=== PATIENT | female | born 1975 | race Caucasian/White ===

== ENCOUNTER 2016-07-21 19:32 | Emergency (ER) | payer OTHER ==
[~2016-07-21] VITALS: Ht 165.1 cm; Wt 122.5 kg
[~2016-07-21 19:32] MED LIST: ADDERALL 5 MG TA5 M1 PO; AMITRIPTYLINE H10 M1 PO; ANASPAZ0.125 MG PO; ANASPAZ0.125 MG SUBLING; ATIVAN1 MG; ATIVAN1 MG PO; AZITHROMYCIN 2250 MG PO; BACTRIM DS TAB1 EACH PO; BENTYL 10 MG CA10 M1 PO; CARAFATE 1 GM TA1 G1 PO; CARAFATE 11 GM/10 M1 PO; CIPROFLOXACIN500 M1 PO; CLONAZEPAM 1 MG1 M1 PO; CLONAZEPAM0.125 MG PO; COUMADIN 1MG TAB1 M1 PO; CREON 10 CAPSUL1 CA1 PO; FENTANYL PA12 MCG/H1; FENTANYL PA25 MCG/HR; HYDROCODONE-AP1 EAC6 PO; KEFLEX500 MG PO; KLONOPIN1 MG PO; LAMICTAL XR50 MG PO; LEXAPRO 10 MG T10 M2 PO; LEXAPRO 10 MG T10 MG; LEXAPRO 10 MG T10 MG PO; LITHIUM CARBON150 MG PO; LORTAB 5 MG/5001 TA1 PO; LUPRON DEPOT45 MG IM; MACROBID 100 M100 M1; MACROBID 100 M100 M1 PO; MARINOL 2.5 MG2.5 M1 PO; MARINOL10 MG PO; MARINOL2.5 MG; MIRALAX255 GM PO; NOHOMEMEDICATIONS; NORCO 5-325 TA1 EACH PO; OXYCODON-ACETA1 EAC1 PO; OXYCODONE HCL 55 MG; OXYCODONE HCL PO; OXYCODONE-ACET1 EAC2 PO; OXYCONTIN CR 1010 M1 PO; OXYCONTIN CR 2020 M1 PO; OXYCONTIN10 M1 PO; OXYCONTIN20 MG PO; PENICILLIN V P500 MG PO; PERCOCET 10-321 EACH; PERCOCET 5-3251 EACH PO; PERCOCET 7.5-31 EACH PO; PHENERGAN 25 MG25 M1 PO; PHENERGAN 25 MG25 MG PO; PHENERGAN25 M2 RC; PHENERGAN25 MG; PHENERGAN50 MG RC; PRILOSEC 20 MG20 MG PO; PROTONIX40 M2 PO; PYRIDIUM200 MG PO; REGLAN 10 MG TA10 M1 PO; RESTORIL15 MG PO; RESTORIL30 MG; ROBAXIN 750 MG750 M1 PO; SEROQUEL 25 MG25 M1 PO; SEROQUEL XR 30300 MG PO; TAMSULOSIN HCL0.4 M1 PO; TRANSDERM-SCO1 PATC1 TOP; VALIUM5 MG PO; VANCOMYCIN250 MG/2.5 PO; WELLBUTRIN XL150 M1; WELLBUTRIN XL150 M1 PO; XANAX1 MG PO; XARELTO10 M1; ZANAFLEX4 MG PO; ZOFRAN 4 MG ORAL4 MG PO; ZOFRAN ODT4 M1 PO; ZOFRAN ODT4 MG PO; ZOFRAN4 MG PO; ZPAK PO
[2016-08-26] MEDS ORDERED: COUMADIN 3 MG TA3 M1 PO (12:37)
== END 2016-07-21 22:27 | disposition home or self-care (01) ==
LOC: ER 19:32
DX: R51 Headache (principal); E66.9 Obesity, unspecified; Z86.711 Personal history of pulmonary embolism; Z86.718 Personal history of other venous thrombosis and embolism; Z90.49 Acquired absence of other specified parts of digestive tract; Z87.442 Personal history of urinary calculi; Z68.41 Body mass index [BMI] 40.0-44.9, adult; Z88.1 Allergy status to other antibiotic agents; Z88.8 Allergy status to other drugs, medicaments and biological substances; Z88.5 Allergy status to narcotic agent; Z88.6 Allergy status to analgesic agent

== ENCOUNTER 2016-07-22 13:17 | Emergency (ER) | payer OTHER ==
[~2016-07-22] VITALS: Ht 165.1 cm; Wt 122.5 kg
[2016-08-26] MEDS ORDERED: COUMADIN 3 MG TA3 M1 PO (12:37)
== END 2016-07-22 15:47 | disposition home or self-care (01) ==
LOC: ER 13:17
DX: F11.20 Opioid dependence, uncomplicated (principal); G89.29 Other chronic pain; R51 Headache; Z88.1 Allergy status to other antibiotic agents; Z88.5 Allergy status to narcotic agent; Z88.8 Allergy status to other drugs, medicaments and biological substances; Z90.49 Acquired absence of other specified parts of digestive tract; Z98.890 Other specified postprocedural states

== ENCOUNTER 2017-05-18 18:52 | Inpatient (IN) | payer OTHER ==
[~2017-05-18] VITALS: Ht 165.1 cm; Wt 135.2 kg
--- NOTE | ~2017-05-18 | EKG ---
[place] [address] [place] [address] ELECTROCARDIOGRAM REPORT Name: VISHAL STOCKTONIN GUICHO [id number] Admission: 05/18/17 Attend Phys: Discharge: Date of : 79 Report #: [id number] THIS REPORT FOR: //name// [facility] ED Test Date: 2017-05-18 Test Time: 19:21:30 Pat Name: MT STOCKTON Department: Room: Gender: F Veneer Repairer Machine: Josias RHODES : 1975 Requested By: Swati Scanlon Order Number: [id number] MD: Pietro Patton Measurements Intervals [place] Rate: 103 P: -36 DC: 156 QRS: -8 QRSD: 81 T: 175 QT: 336 QTc: 440 Interpretive Statements Sinus tachycardia Nonspecific repol abnormality, diffuse leads Compared to ECG 05/09/2017 00:38:10 Early repolarization now present Sinus rhythm no longer present Electronically Signed On 05-18-2017 21:07:44 FIELD MECHANIC/SITE LEAD by Pietro Patton [email or web address] <ELECTRONICALLY SIGNED> By: Pietro Patton MD 05/18/172106 20 20 Pietro Patton MD /RONALDO
[~2017-05-18 18:52] MED LIST changes: +ANTIVERT25 MG PO; +AUGMENTIN 875875 MG PO; +COUMADIN 3 MG TA3 M1 PO; +COUMADIN 5 MG TA5 M1 PO; +CYCLOBENZAPRINE5 MG PO; +EFFEXOR XR75 MG; +ENOXAPARIN100 MG/11 SUBQ; +ENOXAPARIN30 MG/0.1 SUBQ; +HYDROCODON-ACE1 EAC7 PO; +TOPAMAX 25 MG T25 M1 PO
[2017-05-18 18:55] VITALS: BP 156/106
[2017-05-18 19:57] LABS: ABSOLUTE NEUTROPHILS 7.3 thou/uL (1.4-8.2); BASOPHILS 0.4 % (0.0-2.0); HEMATOCRIT 42.5 % (37.0-47.0); HEMOGLOBIN 13.8 gm/dL (12.0-15.0); LYMPHOCYTES 17.5 % (24.0-44.0); MCHC 32.5 g/dL (28.0-37.0); MONOCYTES 6.1 % (1.0-8.0); PLATELET COUNT 335 thou/uL (150-400); RBC 4.94 mil/uL (4.20-5.00); RDW 15.1 % (10.5-14.5); WBC 9.8 thou/uL (4.0-11.0)
[2017-05-18 20:00] LABS: MANUAL DIFF NO
[2017-05-18 20:12] LABS: INR 1.3; PROTIME 13.1 Seconds (9.3-11.4)
[2017-05-18 20:35] LABS: ANION GAP 8 mmol/L (7-16); BUN 14 mg/dL (7-18); CALCIUM 9.1 mg/dL (8.5-10.1); CHLORIDE 106 mmol/L (98-107); CO2 24 mmol/L (21-32); CREATININE 0.9 mg/dL (0.6-1.0); GLUCOSE 168 mg/dL (74-106); POTASSIUM 3.8 mmol/L (3.5-5.1); SODIUM 138 mmol/L (136-145)
[2017-05-18 20:44] LABS: ALBUMIN 3.1 g/dL (3.4-5.0); ALKALINE PHOSPHATASE 144 U/L (46-116); DIRECT BILIRUBIN < 0.1 mg/dL (<0.1-0.3); SGOT 14 U/L (15-37); SGPT 31 U/L (30-65); TOTAL BILIRUBIN 0.3 mg/dL (<0.1-1.0); TOTAL PROTEIN 7.5 g/dL (6.4-8.2); TROPONIN-I < 0.04 ng/mL (<0.06)
[2017-05-18 22:32] VITALS: BP 114/72
[2017-05-18 22:50] VITALS: BP 140/70; BP 140/71
[2017-05-19 06:45] LABS: INR 1.4
[2017-05-19 08:18] VITALS: BP 135/88
[2017-05-19 11:28] VITALS: BP 131/89
[2017-05-19 14:56] LABS: INR 1.6; PROTIME 16.7 Seconds (9.3-11.4)
[2017-05-19 15:15] VITALS: BP 118/71
[2017-05-19 20:48] VITALS: BP 105/64
[2017-05-20 04:45] VITALS: BP 123/70
[2017-05-20 12:41] VITALS: BP 132/91
[2017-05-20 17:03] VITALS: BP 140/74
[2017-05-20 19:24] VITALS: BP 132/79
[2017-05-21 03:46] VITALS: BP 120/84
[2017-05-21 06:19] LABS: HEMATOCRIT 40.1 % (37.0-47.0); HEMOGLOBIN 12.9 gm/dL (12.0-15.0); MCH 27.7 pg (26.0-34.0); MCHC 32.3 g/dL (28.0-37.0); MCV 85.8 fL (80.0-100.0); RBC 4.67 mil/uL (4.20-5.00); WBC 8.2 thou/uL (4.0-11.0)
[2017-05-21 06:32] LABS: INR 2.5; PROTIME 24.4 Seconds (9.3-11.4)
[2017-05-21 07:51] VITALS: BP 124/86
[2017-05-21] MEDS ORDERED: NEURONTIN 300300 M1 PO (10:31)
[2017-05-21] MEDS ORDERED: TOPAMAX 25 MG T25 M1 PO (10:31)
[2017-05-21] MEDS ORDERED: LIPITOR10 MG PO (10:31)
[2017-05-21] MEDS ORDERED: PEPCID20 MG PO (10:32)
[2017-05-21 11:21] VITALS: BP 118/75
[2017-05-21 16:38] VITALS: BP 118/75
== END 2017-05-21 18:24 | disposition home or self-care (01) | DRG 57 ==
LOC: ER 18:52 → EROBS 22:05 → 3W 22:05 → ENTRNSPT 05-21 18:12 → 3W 05-21 18:24
PROVIDERS: Emergency Medicine; Hospitalist; Nurse Practitioner
DX: G81.90 Hemiplegia, unspecified affecting unspecified side (principal); Z68.42 Body mass index [BMI] 45.0-49.9, adult; D68.59 Other primary thrombophilia; G43.909 Migraine, unspecified, not intractable, without status migrainosus; E66.01 Morbid (severe) obesity due to excess calories; F32.9 Major depressive disorder, single episode, unspecified; I10 Essential (primary) hypertension; Z86.711 Personal history of pulmonary embolism; Z86.718 Personal history of other venous thrombosis and embolism; Z87.442 Personal history of urinary calculi; Z87.01 Personal history of pneumonia (recurrent); Z86.73 Personal history of transient ischemic attack (TIA), and cerebral infarction without residual deficits; Z79.899 Other long term (current) drug therapy; Z79.01 Long term (current) use of anticoagulants; Z88.8 Allergy status to other drugs, medicaments and biological substances; Z88.6 Allergy status to analgesic agent; Z91.048 Other nonmedicinal substance allergy status; Z90.49 Acquired absence of other specified parts of digestive tract; Z82.49 Family history of ischemic heart disease and other diseases of the circulatory system; Z71.3 Dietary counseling and surveillance
CPT/HCPCS: 10779

== ENCOUNTER 2017-07-12 07:53 | Emergency (ER) | payer BC ==
[~2017-07-12] VITALS: Ht 165.1 cm; Wt 122.5 kg
--- NOTE | ~2017-07-12 | EKG ---
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 Operator: [facility] : 1975 Requested By: Swati Scanlon Order Number: [id number] MD: Pietro Patton Measurements Intervals [place] Rate: 62 P: -10 MT: 163 QRS: -12 QRSD: 80 T: 69 QT: 476 QTc: 484 Interpretive Statements Sinus rhythm Inferior infarct, old Compared to ECG 05/18/2017 19:21:30 Myocardial infarct finding now present Sinus tachycardia no longer present Early repolarization no longer present Electronically Signed On 07-12-2017 9:08:53 CITIZEN PARTICIPATION SPECIALIST by Pietro Patton [email or web address] <ELECTRONICALLY SIGNED> By: Pietro Patton MD 07/12/1708 4 4 Pietro Patton MD /RONALDO
[~2017-07-12 07:53] MED LIST changes: +LIPITOR10 MG PO; +NEURONTIN 300300 M1 PO; +PEPCID20 MG PO
[2017-07-12] MEDS ORDERED: XARELTO20 MG PO (08:42)
[2017-07-12] MEDS ORDERED: NEURONTIN600 MG PO (08:43)
[2017-07-12 11:15] LABS: ABSOLUTE NEUTROPHILS 4.5 thou/uL (1.4-8.2); BASOPHILS 0.5 % (0.0-2.0); EOSINOPHILS 2.7 % (0.0-3.0); HEMATOCRIT 38.2 % (37.0-47.0); HEMOGLOBIN 12.8 gm/dL (12.0-15.0); LYMPHOCYTES 29.5 % (24.0-44.0); MCH 28.8 pg (26.0-34.0); MCHC 33.5 g/dL (28.0-37.0); MONOCYTES 6.8 % (1.0-8.0); PLATELET COUNT 335 thou/uL (150-400); POLYS 60.5 % (36.0-66.0); RBC 4.44 mil/uL (4.20-5.00); RDW 13.7 % (10.5-14.5); WBC 7.4 thou/uL (4.0-11.0)
[2017-07-12 11:23] LABS: CALCIUM 8.6 mg/dL (8.5-10.1); CREATININE 1.1 mg/dL (0.6-1.0); POTASSIUM 4.2 mmol/L (3.5-5.1)
[2017-07-12 11:32] LABS: APTT 26.4 Seconds (24.5-32.8); PROTIME 10.5 Seconds (9.3-11.4); TROPONIN-I 0.04 ng/mL (<0.06)
[2017-07-12 12:19] VITALS: BP 115/57
[2017-11-07] MEDS ORDERED: BAYER CHEWABLE81 MG PO (09:17)
[2017-11-07] MEDS ORDERED: LOPRESSOR50 PO (10:38)
== END 2017-07-12 12:21 | disposition home or self-care (01) ==
LOC: ER 07:53
PROVIDERS: Emergency Medicine
DX: I95.1 Orthostatic hypotension (principal); E66.9 Obesity, unspecified; I82.409 Acute embolism and thrombosis of unspecified deep veins of unspecified lower extremity; Z90.49 Acquired absence of other specified parts of digestive tract; Z87.442 Personal history of urinary calculi; Z88.1 Allergy status to other antibiotic agents; Z88.8 Allergy status to other drugs, medicaments and biological substances; Z88.6 Allergy status to analgesic agent

== ENCOUNTER 2017-07-26 11:12 | Inpatient (IN) | payer BC ==
[~2017-07-26] VITALS: Ht 165.1 cm; Wt 139.6 kg
--- NOTE | ~2017-07-26 | EEG ---
[facility] [place] [address] ELECTROENCEPHALOGRAM Name: MT STOCKTON Room #: 349-I [facility] IN M.R.#: [id number] Admission: 07/26/17 Attend Phys: Neyda Lainez MD Discharge: 07/28/17 Date of : 79 Report #: [id number] THIS REPORT FOR: //name// CC: HEIDY Lewis DATE OF SERVICE: 07/26/2017 This patient had an episode of speech difficulty and has previous strokes. EEG was done by placing the electrodes by standard 10/20 system of electrode placement. Both referential and sequential montages were used for recording. Background activity in this patient's EEG is about 10 Hz and 30 microvolt. It is a symmetrical activity. The amplitude is somewhat higher on the right side, but that cannot be a normal variation. Photic stimulation was unremarkable. The patient went to sleep that was associated with bilaterally symmetrical sleep spindle and vertex sharp waves. Throughout the record, no active epileptiform activity was noticed, but occasional sharper activity may be present in the left temporal area, which may be related to sleep, but difficult to tell. IMPRESSION: This patient's EEG does not demonstrate any clear-cut epileptiform activity. Question of sharper activity is present in the left temporal area, which is difficult to tell, but looks like sleep-related activity. Thank you very much for this referral. <ELECTRONICALLY SIGNED> By: Can Lewis MD 07/29/17 0732 06 MD donna Flores
--- NOTE | ~2017-07-26 | HC ---
[facility] [place] [address] CONSULTATION Name: MT STOCKTON Room #: 349-I [facility] IN ..#: [id number] Admission: 07/26/17 Attend Phys: Neyda Lainez MD Discharge: 07/28/17 Date of : 79 Report #: [id number] THIS REPORT FOR: //name// CC: HEIDY Lewis DATE OF SERVICE: 07/26/2017 HISTORY OF PRESENT ILLNESS: This is a 41-year-old female patient who is unable to provide any reliable history. The patient basically stayed asleep. She wakes up, she talks to me and then she goes back to sleep. provided history and he indicates that the patient is having some trouble for the last two weeks, but last night, she started having speech difficulty. According to him, she has not slept since Thursday and she was stressed out. These symptoms onset was at least last week, but may be longer than that. After coming to the hospital, she is becoming better. REVIEW OF SYSTEMS: Very extensive in this patient. This patient has seen Dr. Adler in the past. She apparently had a stroke in the past. 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 She is on anticoagulation. Review of systems indicate that she had a pretty significant workup. She had a carotid Doppler done, which was unremarkable. She had an MRI of the brain done, which showed old stroke, but no new strokes; that was done in April of last year. She had an MRA of the [place], which did not show marked abnormality. She had MRA of the venous sinuses, which was unremarkable. She had a pretty extensive history in the past and as mentioned above, had seen multiple physicians and she is on anticoagulation. Presently, she will not talk and she is sleepy, but she wakes up. When she wakes up, she does follow commands. She has some history of nausea, vomiting. She has a history of fracture of the neck, as I understand. She has a history of kidney stone. At one time, she had a Port-A-Cath. She also had some ERCP and deep vein thrombosis. The 14-point review of systems is pretty extensive in this patient and this was the relevant one. PAST MEDICAL HISTORY: Positive for multiple things and she has a history of documented strokes in the past. FAMILY HISTORY: Negative for early age stroke. SOCIAL HISTORY: She is and she was here with her and I interviewed him and he provided a lot of history. PHYSICAL EXAMINATION: NEUROLOGIC: Examination indicates she is alert. She is responsive. When I asked her whether she is better, she indicates she is. She is able to talk. [facility] [address] [place] [address] CONSULTATION Name: MT STOCKTON Room #: 349-I [facility] IN M.R.#: [id number] Admission: 07/26/17 Attend Phys: Neyda Lainez MD Discharge: 07/28/17 Date of : 79 Report #: [id number] She is sleepy because she said she has not slept much, so examination is limited. She moves her eyes in multiple directions, without any problem. She moves both sides. She does not have any meningeal sign. Rest of the examination is quite difficult in this patient. HEART: Examination does not appear to be showing atrial fibrillation. No respiratory difficulty was noticed. VITAL SIGNS: Indicate a blood pressure 156/82, respirations 18 and pulse is 82. GENERAL: She is otherwise a well-developed individual. IMPRESSION AND PLAN: It is a pretty complicated case. It is not clear that this patient had a stroke, and even if she did, it was last night and she is fully anticoagulated. A recent workup was mostly unremarkable. She is admitted for further workup and I think, the best is to get an MRI done in this patient first to see if there is any new lesion. We will see what the MRI shows and decide about further management after that is done. I will also get an EEG done and we will see how much workup needs to be repeated. I discussed with the patient and the and I discussed with them that she is outside the window for any intervention even if she had a stroke and more importantly, she is also on anticoagulation. Therefore, we will do this workup and go from there. She is agreeable with this plan. Thank you very much for this referral. <ELECTRONICALLY SIGNED> By: Can Lewis MD 07/29/17 0731 49 99 Can Lewis MD /nt
--- NOTE | ~2017-07-26 | 2DMMODE ---
[facility] [address] [address] 2 D/M-MODE ECHOCARDIOGRAM Name: MAHINMT LINDO Room #: 349-I ADM IN ..#: [id number] Admission: 07/26/17 Attend Phys: Neyda Lainez, Discharge: Date of : 79 Date of Service: 07/27/17 1602 Report #: [id number] THIS REPORT FOR: //name// APPROVED REPORT Study performed: 07/27/2017 13:58:46 EXAM: Comprehensive 2D, Doppler, and color-flow Echocardiogram Patient Location: Echo lab Room #: 349 Status: routine BSA: 2.37 HR: 97 bpm BP: 121/70 mmHg Other Information Study Quality: Technically Limited Technically limited study due to body habitus, patient unable to tolerate apical views, not all apical views obtained. Indications CVA/TIA MVR 08/2014 Echo Enhancing Agent Indication: Rule out Shunt Agent(s) / Amount(s) Used: Agitated Saline 6 cc 2D Dimensions RVDd: 38.22 mm LVEF(%): 51.28 (>50%) IVSd: 13.05 (7-11mm) LVOT Diam: 22.24 (18-24mm) LVDd: 40.55 mm PWd: 13.43 (7-11mm) Ascending Ao: 31.57 (22-36mm) LVDs: 30.08 (25-40mm) Aortic Root: 30.95 mm Grajeda's LVEF: 51.28 % Volumes Left Atrial Volume (Systole) Single Plane 4CH: 61.04 mL Aortic Valve AoV Peak Chidi.: 1.80 m/s AO Peak Gr.: 13.01 mmHg LVOT Max P.22 mmHg [facility] [address] [place] [address] 2 D/M-MODE ECHOCARDIOGRAM Name: STOCKTON,MT GUICHO Room #: 349-I [facility] IN [facility].#: [id number] Admission: 07/26/17 Attend Phys: Neyda Lainez, Discharge: Date of : 79 Date of Service: 07/27/17 1602 Report #: [id number] LVOT Max V: 1.34 m/s ERMELINDA Vmax: 2.89 cm2 Mitral Valve MV Peak Gr.: 10.46 mmHg MV Mean Gr.: 6.00 mmHg E/A Ratio: 0.9 MV Decel. Time: 298.86 ms MV E Max Chidi.: 1.49 m/s MV A Chidi.: 1.61 m/s MV Max Chidi.: 1.62 m/s MV Mean Chidi.: 1.17 m/s MV VTI: 479.50 mm MV PHT: 86.67 ms IVRT: 141.87 ms Pulmonary Valve PV Peak Chidi.: 0.94 m/s PV Peak Gr.: 3.59 mmHg Pulmonary Vein P Vein S: 0.63 m/s P Vein A: 0.20 m/s P Vein D: 0.43 m/s P Vein A Dur.: 83.0 msec P Vein S/D Ratio: 1.47 Left Ventricle The left ventricle is normal size. Mild concentric left ventricular hypertrophy. The left ventricular systolic function is normal. The left ventricular ejection fraction is within the normal range. LVEF is 60-65%. Mild diastolic dysfunction is present (impaired relaxation pattern). Right Ventricle Right ventricle is mildly dilated. The right ventricular systolic function is normal. Atria The left atrium size is normal. No shunting by contrast bubble injection. Right atrium is mildly dilated. Aortic Valve The aortic valve is normal in structure. No aortic regurgitation is present. There is no aortic valvular stenosis. Mitral Valve Mitral valve leaflets appear mildly thickened consistent with prior mitral valve repair surgery. Mitral valve maximum pressure gradient is 10.5 mmHg and mean pressure gradient is 6 mmHg. [place] [address] 2 D/M-MODE ECHOCARDIOGRAM Name: MT STOCKTON Room #: 349-I ADM IN M.R.#: [id number] Admission: 07/26/17 Attend Phys: Neyda aLinez, Discharge: Date of : 79 Date of Service: 07/27/17 1602 Report #: [id number] valve regurgitation noted. No evidence of mitral valve stenosis. Tricuspid Valve The tricuspid valve is normal in structure. Trace tricuspid regurgitation. Unable to assess PA pressure. Pulmonic Valve Pulmonic valve is not well visualized. Trace pulmonic regurgitation. Great Vessels The aortic root is normal in size. Unable to visualize IVC. Pericardium There is no pericardial effusion. <Conclusion> The left ventricle is normal size. LVEF is 60-65%. Right ventricle is mildly dilated. The right ventricular systolic function is normal. Right atrium is mildly dilated. The aortic valve is normal in structure. Mitral valve leaflets appear mildly thickened consistent with prior mitral valve repair surgery. Mitral valve maximum pressure gradient is 10.5 mmHg and mean pressure gradient is 6 mmHg. The tricuspid valve is normal in structure. Trace tricuspid regurgitation. Unable to assess PA pressure. Pulmonic valve is not well visualized. Trace pulmonic regurgitation. There is no pericardial effusion. No shunting by contrast bubble injection. <ELECTRONICALLY SIGNED> By: Mark Cobos MD 07/27/17 1602 160 160 Mark Cobos MD /INF
--- NOTE | ~2017-07-26 | H ---
[facility] [place] [address] HISTORY AND PHYSICAL Name: MT STOCKTON Room #: 349-I [facility] IN .R.#: [id number] Admission: 07/26/17 Attend Phys: Neyda Lainez MD Discharge: 07/28/17 Date of : 79 Report #: [id number] THIS REPORT FOR: //name// CC: HEIDY Lewis REASON FOR ADMISSION: Difficulty finding the words. HISTORY OF PRESENT ILLNESS: This is a very complex patient with remote history of brain infarct in the past. She is currently maintained on Xarelto. She presented to the hospital back on 04/21 after a fall and had an extensive workup. Her history dates back to the fact that she had some abdominal pain issues and a Port-A-Cath that got infected. This has resulted in septic embolization to the brain with a stroke back in 06/2014. This has resulted in also some residual memory deficit. In 2014, she had what was described to be endocarditis for unclear reasons to me. She was also found to have a DVT and PE back in 2012. The source of the endocarditis was thought to be due to sepsis. At that time, she had some mitral valve issues, and she had repair at [facility] of her mitral valve. In 2015, she had a C6 fracture and had what was described as damage to her vertebral artery. During that time, she was found to have a protein S level of 54%. She was on Coumadin at that time. Extensive workup was nonrevealing. Dr. Gtz's impression and plan during the last admission are well documented in the medical charts. She is currently maintained on Xarelto. She presented with headache and difficulty finding the words this morning. There seems to be a drug seeking behavior. She has had numerous admissions previously. She reported no numbness, but she had some dizziness associated with a headache this morning. She describes the headache as diffuse and throbbing. No visual symptoms. Because of her previous history, she had a CT that revealed chronic infarct with no acute new issues. However, Neurology recommended admissions. PAST MEDICAL HISTORY: Extensive and includes the followin. Endocarditis. 2. Remote strokes. 3. Status post Port-A-Cath insertion and removal. 4. DVT. 5. C6 fracture. 6. Pulmonary embolism. 7. Vertebral artery anomaly. 8. Appendectomy. 9. Obesity. 10. Appendectomy. 11. Mitral valve repair. 12. TIAs in the past: 13. Duodenal ulcers. 14. Status post ERCP. [address] [address] HISTORY AND PHYSICAL Name: MT STOCKTON Room #: 349-I [facility].#: [id number] Admission: 07/26/17 Attend Phys: Neyda Lainez MD Discharge: 07/28/17 Date of : 79 Report #: [id number] 15. Status post bile duct stent. FAMILY HISTORY: Grandma who had a CVA. Mother had heart disease. SOCIAL HISTORY: No drug or alcohol abuse. and lives with her daughter. REVIEW OF SYSTEMS: GENERAL: No fever or chills, but she had some weakness. CARDIOVASCULAR: No chest pain or palpitation. PULMONARY: No cough or hemoptysis. GASTROINTESTINAL: No nausea or vomiting. GENITOURINARY: No frequency, no urgency. NEUROLOGIC: As per the history of present illness. MEDICATIONS: She is currently maintained on 1. Xarelto. 2. Gabapentin. 3. Effexor. PHYSICAL EXAMINATION: GENERAL: She is alert, oriented. She is able to talk with me. VITAL SIGNS: Initial blood pressure is 150/68, temperature 36.9. pulse rate 70. HEAD AND NECK: No jugular venous distention, no bruit, no thyromegaly. CHEST: Clear to auscultation bilaterally. CARDIOVASCULAR: Regular with no rub detected. ABDOMEN: Soft, nontender with no hepatosplenomegaly. LOWER EXTREMITIES: No edema with intact peripheral pulses. NEUROLOGICAL: No gross deficit. LABORATORY DATA: Nonrevealing. Hemoglobin 11.6. Blood sugar is mildly elevated at 264. UA is pending. Calcium 8.4. CT head negative with chronic appearing infarcts. ASSESSMENT, IMPRESSION AND PLAN: 1. Remote history of septic embolization and old infarct related to that. 2. Difficulty finding the words with slurred speech. 3. Mitral valve repair. 4. Remote history of ulcers. 5. Chronic anticoagulation usage. 6. Remote history of deep venous thrombosis and pulmonary embolization due to septic embolization. 7. Admission. 8. Neurological consultation. 9. Avoid narcotics as I highly suspect that this is not a genuine presenting symptoms with drug seeking behavior. [facility] [address] [place] [address] HISTORY AND PHYSICAL Name: STOCKTON,MT GUICHO Room #: 349-I [facility] IN [place].#: [id number] Admission: 07/26/17 Attend Phys: Neyda Lainez MD Discharge: 07/28/17 Date of : 79 Report #: [id number] 10. Resume her blood thinners. 11. See the full consultation note from Dr. Gtz back in April of this year. I would like to know what caused her endocarditis in the past and obtain those records from I am not really sure what would cause an endocarditis in a 41-year-old other than the Port-A-Cath infection, possibly related to substance abuse. 12. We will obtain a urine drug screen. 13. If the MRI is negative, she could be safely discharged tomorrow. <ELECTRONICALLY SIGNED> By: Neyda Lainez MD 08/03/17 0832 1436 1507 Neyda Lainez MD /nt
--- NOTE | ~2017-07-26 | EKG ---
[place] [address] [facility] [place] [address] ELECTROCARDIOGRAM REPORT Name: STOCKTONVISHALMT GUICHO Room #: REG [facility]#: [id number] Admission: 07/26/17 Attend Phys: Discharge: Date of : 79 Report #: [id number] THIS REPORT FOR: //name// [facility] ED Test Date: 2017-07-26 Test Time: 11:39:19 Pat Name: MT STOCKTON Department: Room: Gender: F Energy Systems Laboratory Director: Josias RHODES : 1975 Requested By: Swati Scanlon Order Number: [id number] MD: Pietro Patton Measurements Intervals [place] Rate: 97 P: 25 VA: 161 QRS: -9 QRSD: 80 T: -16 QT: 364 QTc: 463 Interpretive Statements Sinus rhythm Consider inferior infarct Abnormal T, consider ischemia, anterior leads Compared to ECG 07/12/2017 08:25:52 T-wave abnormality now present Possible ischemia now present Myocardial infarct finding still present Electronically Signed On 07-26-2017 12:19:11 FIBERGLASS FABRICATOR by Pietro Patton [email or web address] <ELECTRONICALLY SIGNED> By: Pietro Patton MD 07/26/17 1219 1139 1139 Pietro Patton MD /EPI
[~2017-07-26 11:12] MED LIST changes: +NEURONTIN600 MG PO; +XARELTO20 MG PO
[2017-07-26 13:11] LABS: ANION GAP 10 mmol/L (7-16); BUN 9 mg/dL (7-18); CALCIUM 8.4 mg/dL (8.5-10.1); CHLORIDE 105 mmol/L (98-107); CO2 26 mmol/L (21-32); CREATININE 0.9 mg/dL (0.6-1.0); GLUCOSE 264 mg/dL (74-106); POTASSIUM 3.5 mmol/L (3.5-5.1); SODIUM 141 mmol/L (136-145)
[2017-07-26 13:20] LABS: TROPONIN-I < 0.04 ng/mL (<0.06)
[2017-07-26 13:27] LABS: APTT 23.5 Seconds (24.5-32.8); INR 1.1; PROTIME 11.2 Seconds (9.3-11.4)
[2017-07-26 13:31] LABS: ABSOLUTE NEUTROPHILS 6.1 thou/uL (1.4-8.2); BASOPHILS 0.2 % (0.0-2.0); HEMATOCRIT 34.9 % (37.0-47.0); HEMOGLOBIN 11.6 gm/dL (12.0-15.0); LYMPHOCYTES 12.6 % (24.0-44.0); MCH 29.2 pg (26.0-34.0); MCHC 33.2 g/dL (28.0-37.0); MCV 87.8 fL (80.0-100.0); MONOCYTES 10.1 % (1.0-8.0); PLATELET COUNT 279 thou/uL (150-400); POLYS 77.1 % (36.0-66.0); RBC 3.98 mil/uL (4.20-5.00); RDW 14.4 % (10.5-14.5); WBC 7.9 thou/uL (4.0-11.0)
[2017-07-26 18:46] VITALS: BP 116/89
[2017-07-27] VITALS (7 sets, daily range): BP systolic 98–147; BP diastolic 33–96
[2017-07-27 03:15] LABS: URINE BLOOD NEGATIVE (Negative); URINE CLARITY CLEAR; URINE COLOR YELLOW; URINE GLUCOSE-RANDOM* TRACE (Negative); URINE KETONES 1+ (Negative); URINE LEUKOCYTES NEGATIVE (Negative); URINE NITRITE NEGATIVE (Negative); URINE PROTEIN (DIPSTICK) TRACE (Negative); URINE SPECIFIC GRAVITY >= 1.030 (1.005-1.035)
[2017-07-27 03:22] LABS: AMP/METHAMP Negative (Negative); BARBITURATES Negative (Negative); BENZODIAZEPINES Negative (Negative); COCAINE Negative (Negative); METHADONE Negative (Negative); OPIATES POSITIVE (Negative); PCP Negative (Negative)
[2017-07-27 03:25] LABS: ICTOTEST (BILI CONFIRMATORY) Negative (Negative); URINE BILIRUBIN NEGATIVE (Negative)
[2017-07-27 05:56] LABS: HEMATOCRIT 34.6 % (37.0-47.0); HEMOGLOBIN 11.2 gm/dL (12.0-15.0); MCH 29.1 pg (26.0-34.0); MCHC 32.4 g/dL (28.0-37.0); MCV 89.7 fL (80.0-100.0); RBC 3.86 mil/uL (4.20-5.00); RDW 14.2 % (10.5-14.5); WBC 7.5 thou/uL (4.0-11.0)
[2017-07-27 06:07] LABS: ALBUMIN 2.6 g/dL (3.4-5.0); CALCIUM 8.2 mg/dL (8.5-10.1); CREATININE 0.8 mg/dL (0.6-1.0); POTASSIUM 3.2 mmol/L (3.5-5.1); TOTAL BILIRUBIN 0.3 mg/dL (<0.1-1.0); TOTAL PROTEIN 6.1 g/dL (6.4-8.2)
[2017-07-28] VITALS: BP 99/55
[2017-07-28 03:45] VITALS: BP 104/67
[2017-07-28 05:05] LABS: TSH 2.65 uIU/mL (0.358-3.740)
[2017-07-28 07:05] VITALS: BP 127/75
[2017-07-28 12:17] VITALS: BP 127/75
[2017-07-28 15:35] VITALS: BP 119/79
[2017-07-28 18:24] VITALS: BP 127/75
[2017-11-07] MEDS ORDERED: BAYER CHEWABLE81 MG PO (09:17)
[2017-11-07] MEDS ORDERED: LOPRESSOR50 PO (10:38)
== END 2017-07-28 19:00 | disposition home or self-care (01) | DRG 92 ==
LOC: ER 11:12 → 3W 14:06 → EROBS 14:06 → 3W 07-27 01:34
PROVIDERS: Emergency Medicine; Hospitalist; Psychiatry & Neurology Neuromuscular Medicine
PROC: 4A00X4Z Measurement of Central Nervous Electrical Activity, External Approach (ICD-10-PCS; principal; 2017-07-27)
PROC: B24BZZ4 Ultrasonography of Heart with Aorta, Transesophageal (ICD-10-PCS; principal; 2017-07-27)
DX: R47.81 Slurred speech (principal); Z68.43 Body mass index [BMI] 50.0-59.9, adult; E66.01 Morbid (severe) obesity due to excess calories; R47.01 Aphasia; R51 Headache; R03.0 Elevated blood-pressure reading, without diagnosis of hypertension; I95.9 Hypotension, unspecified; Z86.711 Personal history of pulmonary embolism; Z87.81 Personal history of (healed) traumatic fracture; Z86.718 Personal history of other venous thrombosis and embolism; Z87.442 Personal history of urinary calculi; Z86.73 Personal history of transient ischemic attack (TIA), and cerebral infarction without residual deficits; Z90.49 Acquired absence of other specified parts of digestive tract; Z79.01 Long term (current) use of anticoagulants; Z87.11 Personal history of peptic ulcer disease; Z79.899 Other long term (current) drug therapy; Z88.1 Allergy status to other antibiotic agents; Z88.5 Allergy status to narcotic agent; Z88.8 Allergy status to other drugs, medicaments and biological substances; Z91.048 Other nonmedicinal substance allergy status; Z82.3 Family history of stroke; Z82.49 Family history of ischemic heart disease and other diseases of the circulatory system
CPT/HCPCS: 10879

== ENCOUNTER 2017-10-05 18:14 | Inpatient (IN) | payer BC ==
[~2017-10-05] VITALS: Ht 152.4 cm; Wt 141.8 kg
--- NOTE | ~2017-10-05 | EKG ---
[place] [address] [facility] [address] ELECTROCARDIOGRAM REPORT Name: VISHAL STOCKTONIN GUICHO Room #: 456-P ADM IN M.R.#: [id number] Admission: 10/05/17 Attend Phys: Julio C Diego DO Discharge: Date of : 79 Report #: [id number] THIS REPORT FOR: //name// [facility] ED Test Date: 2017-10-05 Test Time: 18:31:10 Pat Name: MT STOCKTON Department: Room: 456 Gender: F Convertible Top Installer: GELY : 1975 Requested By: Mckinley Bui Order Number: [id number] MD: Yuan Bernal Measurements Intervals [place] Rate: 74 P: -22 ND: 162 QRS: 5 QRSD: 86 T: 80 QT: 397 QTc: 441 Interpretive Statements Sinus rhythm Nonspecific ST and T wave abnormality Compared to ECG 07/26/2017 11:39:19 Nonspecific change in the ST and T-wave segments Electronically Signed On 10-06-2017 9:49:57 CDT by Yuan Bernal [email or web address] <ELECTRONICALLY SIGNED> By: Yuan Bernal MD, [facility] 10/06/17 0949 1831 183 Yuan Bernal MD, [facility] /EPI
--- NOTE | ~2017-10-05 | 2DMMODE ---
[facility] [address] [employer] [place] [address] 2 D/M-MODE ECHOCARDIOGRAM Name: MAHINMTSABA LINDO Room #: 456-P [facility] IN M.R.#: [id number] Admission: 10/05/17 Attend Phys: Julio C Diego, Discharge: Date of : 79 Date of Service: 10/06/17 1527 Report #: [id number] THIS REPORT FOR: //name// APPROVED REPORT Study performed: 10/06/2017 14:22:29 EXAM: Comprehensive 2D, Doppler, and color-flow Echocardiogram Patient Location: Bedside Room #: [facility] Status: routine BSA: 2.25 HR: 92 bpm BP: 131/73 mmHg Other Information Study Quality: Fair Indications Chest Pain Mitral valve repair, Hx of Endocarditis 2D Dimensions RVDd: 37.72 mm LVEF(%): 65.31 (>50%) IVSd: 10.03 (7-11mm) LVOT Diam: 23.05 (18-24mm) LVDd: 43.97 mm PWd: 9.70 (7-11mm) Ascending Ao: 31.09 (22-36mm) LVDs: 28.31 (25-40mm) Aortic Root: 31.83 mm Grajeda's LVEF: 65.31 % Volumes Left Atrial Volume (Systole) Single Plane 4CH: 57.51 mL Single Plane 2CH: 43.55 mL LA ESV Index: 23.00 mL/m2 Aortic Valve AoV Peak Chidi.: 1.55 m/s AO Peak Gr.: 9.63 mmHg LVOT Max P.23 mmHg LVOT Max V: 1.03 m/s ERMELINDA Vmax: 2.76 cm2 Mitral Valve MV Peak Gr.: 12.84 mmHg MV Mean Gr.: 8.22 mmHg E/A Ratio: 0.9 [facility] [place] [address] 2 D/M-MODE ECHOCARDIOGRAM Name: MT STOCKTON Room #: 456-P [facility] IN .R.#: [id number] Admission: 10/05/17 Attend Phys: Julio C Diego, Discharge: Date of : 79 Date of Service: 10/06/17 1527 Report #: [id number] MV Decel. Time: 284.42 ms MV E Max Chidi.: 1.53 m/s MV A Chidi.: 1.69 m/s MV Max Chidi.: 1.79 m/s MV Mean Chidi.: 1.37 m/s MV VTI: 411.67 mm MV PHT: 82.48 ms IVRT: 124.57 ms Pulmonary Valve PV Peak Chidi.: 1.11 m/s PV Peak Gr.: 4.93 mmHg Pulmonary Vein P Vein S: 0.54 m/s P Vein A: 0.20 m/s P Vein D: 0.34 m/s P Vein A Dur.: 115.3 msec P Vein S/D Ratio: 1.59 Tricuspid Valve TR Peak Chidi.: 2.71 m/s TR Peak Gr.: 29.31 mmHg PA Pressure: 29.00 mmHg Left Ventricle The left ventricle is normal size. There is normal left ventricular wall thickness. The left ventricular systolic function is normal. The left ventricular ejection fraction is within the normal range. LVEF is 55-60%. Grade I - abnormal relaxation pattern. Right Ventricle The right ventricle is normal size. The right ventricular systolic function is normal. Atria The left atrium size is normal. The right atrium size is normal. Aortic Valve The aortic valve is normal in structure. No aortic regurgitation is present. There is no aortic valvular stenosis. Mitral Valve The mitral valve is normal in structure. Mildly thickened consistant with prior mitral valve repair. There is no mitral valve regurgitation noted. No evidence of mitral valve stenosis. [place] [address] 2 D/M-MODE ECHOCARDIOGRAM Name: MT STOCKTON Room #: 456-P [facility] IN M.R.#: [id number] Admission: 10/05/17 Attend Phys: Julio C Diego, Discharge: Date of : 79 Date of Service: 10/06/17 1527 Report #: [id number] The tricuspid valve is normal in structure. There is trace to mild tricuspid regurgitation. Estimated PAP 29 mmHg plus the right atrial pressure. There is mild pulmonary hypertension. Pulmonic Valve The pulmonary valve is normal in structure. Trace pulmonic regurgitation. Great Vessels The aortic root is normal in size. IVC is not well visualized. Pericardium There is no pericardial effusion. <Conclusion> The left ventricle is normal size. LVEF is 55-60%. The aortic valve is normal in structure. The mitral valve is normal in structure. Mildly thickened consistant with prior mitral valve repair. The tricuspid valve is normal in structure. There is trace to mild tricuspid regurgitation. Estimated PAP 29 mmHg plus the right atrial pressure. There is mild pulmonary hypertension. The pulmonary valve is normal in structure. Trace pulmonic regurgitation. There is no pericardial effusion. <ELECTRONICALLY SIGNED> By: Mark Cobos MD 10/06/17 1527 1527 1527 Mark Cobos MD /INF
--- NOTE | ~2017-10-05 | HC ---
[facility] [place] [address] CONSULTATION Name: MT STOCKTON Room #: 456-P ADM IN M.R.#: [id number] Admission: 10/05/17 Attend Phys: Julio C Diego DO Discharge: Date of : 79 Report #: [id number] THIS REPORT FOR: //name// CC: HEIDY Diego TYPE OF REPORT: Infectious diseases consultation. REASON FOR CONSULTATION: I was asked to evaluate concerning endocarditis. HISTORY OF PRESENT ILLNESS: The patient is a 42-year old with a previous history of mitral valve endocarditis, status post mitral valve repair in 2013. She also has a coagulopathy and has had DVT, PE, TIAs and stroke. Two weeks ago, she was hospitalized at [facility] with a diagnosis of MRSA bacteremia. Source was not identified. Right upper extremity PICC was placed and she was put on daptomycin for discharge home. While home, she continued to have low-grade fever associated with back and flank pain along with chest pain. No chills or sweats. Intermittent cough. Nausea with daptomycin. No diarrhea. Has had some frequency and mild dysuria. No hemoptysis or hematuria. She remains on Xarelto for her coagulopathy. At [facility], she underwent echocardiogram, which was by her report inconclusive. ALLERGIES: QUINOLONES, DROPERIDOL, FENTANYL, MORPHINE, TAPE, TORADOL and COMPAZINE. MEDICATIONS: As noted on her MAR including doxepin, Effexor, Xarelto, Neurontin, Zanaflex and daptomycin. PAST MEDICAL HISTORY: Pulmonary embolism, DVT, TIA, septic emboli from her endocarditis and status post mitral valve repair in 2015. She has had a Port-A-Cath removed due to infection. TIAs, protein S deficiency, pneumonia, ERCP with bile duct stent, C. difficile colitis, obesity, appendectomy, nephrolithiasis, cholecystitis, status post cholecystectomy, pancreatitis and C6 fracture. FAMILY HISTORY: Hypertension and protein S deficiency. SOCIAL HISTORY: Nonsmoker. No significant alcohol intake. , one child. REVIEW OF SYSTEMS: She has also had sinus congestion and dental pain on the right upper molars. No rash or decubiti. No boils or furuncles. PHYSICAL EXAMINATION: VITAL SIGNS: Afebrile and hemodynamically stable. GENERAL: She was alert and cooperative and pleasant, in no acute distress. O2 saturation normal on room air. Obese. HEENT: Remarkable for dentition in poor repair with tenderness along the upper [facility] [address] [place] [address] CONSULTATION Name: MT STOCKTON Room #: 456-P [facility] IN [facility]#: [id number] Admission: 10/05/17 Attend Phys: Julio C Diego DO Discharge: Date of : 79 Report #: [id number] maxillary molar ridge. NECK: Supple. No petechial hemorrhages in the conjunctiva or mouth. No adenopathy. LUNGS: Clear. HEART: Regular, without appreciable murmur. ABDOMEN: Soft and nontender. No hepatosplenomegaly or mass appreciated. She was tender in the lumbar spine to percussion and palpation. Also had paraspinous tenderness. NEUROLOGICAL: Normal. EXTREMITIES: Unremarkable with a right upper extremity PICC. LABORATORY STUDIES: Sodium 139, potassium 3.9, bicarbonate 25, creatinine 1 and blood glucose in the 200s. AST 27, alkaline phosphatase 142, ALT 25, albumin at 2.9 and lactate 2.5. Troponin negative. BNP 220. INR 1. Hemoglobin 12.7, WBC 6.8; platelet count 313,000 and differential unremarkable. Urinalysis, trace protein. Blood cultures are pending. RADIOLOGICAL DATA: CT abdomen and pelvis unremarkable. Chest x-ray is clear. IMPRESSION: A 42-year-old with history of mitral valve endocarditis due to Staphylococcus aureus. Recently diagnosed with methicillin-resistant Staphylococcus aureus, high-grade bacteremia. She is now 2 weeks into her treatment program and presents with increased pain and low grade fever. No congestive heart failure. Transthoracic echocardiogram showed no evidence of vegetation. She has dental issues along with low back pain, which needs further evaluation. RECOMMENDATIONS: The patient reports intolerance with daptomycin with much GI upset. We will switch to vancomycin and add rifampin. Obtain culture reports and echocardiogram reports from [facility]. Following this, likely need transesophageal echocardiogram. We will repeat blood cultures here. Check sedimentation rate. MRI scan of her spine, lumbosacral region and image her maxillary bone for evidence of apical abscess. <ELECTRONICALLY SIGNED> By: Brian Gao MD 10/07/17 0922 1650 1079 Brian Gao MD /nt
--- NOTE | ~2017-10-05 | TEE ---
[facility] [place] [address] TRANSESOPHAGEAL ECHOCARDIOGRAM Name: MT STOCKTON Room #: 456-P [facility] IN ..#: [id number] Admission: 10/05/17 Attend Phys: Julio C Diego, Discharge: Date of : 79 Date of Service: 10/09/17 1011 Report #: [id number] THIS REPORT FOR: //name// APPROVED REPORT Study performed: 10/09/2017 08:16:58 EXAM: Comprehensive 2D, Doppler, and color-flow Echocardiogram Patient Location: In-Patient Room #: [facility] Status: routine BSA: 2.25 HR: 145 bpm BP: 153/82 mmHg Other Information Study Quality: Excellent Indications Mitral Valve Disease Echo Enhancing Agent Indication: Rule out Shunt Agent(s) / Amount(s) Used: Agitated Saline 7 cc Procedure After obtaining informed consent, patient underwent transesophageal echo in the [employer]. Type of Sedation : General Anesthesia Sedation was administered by Anesthesiologist. Sedation start time: 819 Case end Time: 829 Sedation was achieved intravenously with: Versed (2 mg) Propofol (250 mcg) Transesophageal probe was inserted and advanced into esophagus without difficulty by Yuan Bernal MD. Echo enhancement indication: R/O Septal defect. Echo enhancement agent administered: Agitated Saline The KRYSTA was performed without complications. Throughout the procedure, the blood pressure, pulse oximetry, cardiac rhythm, and rate were monitored. The patient tolerated the procedure without adverse effects. Recovery from conscious sedation was uneventful and vital signs were stable. Ketamine [address] [address] TRANSESOPHAGEAL ECHOCARDIOGRAM Name: STOCKTONMTSABA GARCIAGUICHO Room #: 456-P [facility] IN .R.#: [id number] Admission: 10/05/17 Attend Phys: Julio C Diego, Discharge: Date of : 79 Date of Service: 10/09/17 1011 Report #: [id number] Left Ventricle The left ventricle is normal size. There is normal LV segmental wall motion. There is normal left ventricular wall thickness. The left ventricular systolic function is normal. The left ventricular ejection fraction is within the normal range. LVEF is 60-65%. Right Ventricle The right ventricle is normal size. The right ventricular systolic function is normal. Atria The left atrium size is normal. The right atrium size is normal. Aortic Valve The aortic valve is normal in structure. No aortic regurgitation is present. There is no aortic valvular stenosis. Mitral Valve Abnormally thickened/edematous anterior and posterior mitral leaflets. 0.6cm irregular bordered mass adherent to posterior leaflet near annulus consistent with vegetation. No ring abscess Mitral anuloplasty ring is present Trace to mild mitral regurgitation. No evidence of mitral valve stenosis. Tricuspid Valve The tricuspid valve is normal in structure. There is mild tricuspid regurgitation. Pulmonic Valve The pulmonary valve is normal in structure. There is no pulmonic valvular regurgitation. Great Vessels The aortic root is normal in size. The ascending aorta is normal in size. Pericardium There is no pericardial effusion. Critical Notification Critical Value: Yes Physician Notified Date: 10/09/2017 [facility] [address] [place] [address] TRANSESOPHAGEAL ECHOCARDIOGRAM Name: MT STOCKTON Room #: 456-P [facility] IN .R.#: [id number] Admission: 10/05/17 Attend Phys: Julio C Diego, Discharge: Date of : 79 Date of Service: 10/09/17 1011 Report #: [id number] <Conclusion> The left ventricular systolic function is normal. There is normal LV segmental wall motion. LVEF 60-65%. No masses or clots in the left atrium or left atrial appendage. No shunting by contrast bubble injection The aortic valve is normal in structure. No aortic valvular stenosis or insufficiency. Abnormally thickened/edematous anterior and posterior mitral leaflets, especially posterior leaflet. 0.6cm irregular bordered mass adherent to posterior leaflet near annulus consistent with vegetation. No ring abscess Mitral anuloplasty ring is present. Trace to mild mitral regurgitation. There is no pericardial effusion. <ELECTRONICALLY SIGNED> By: Yuan Bernal MD, [facility] 10/09/17 1011 1011 1011 Yuan Bernal MD, FACC /INF
[2017-10-05 19:01] VITALS: BP 121/69
[2017-10-05] MEDS ORDERED: CUBICIN500 MG IVPB (19:14)
[2017-10-05] MEDS ORDERED: ZANAFLEX4 MG PO (19:15)
[2017-10-05] MEDS ORDERED: DOXEPIN 25 MG C25 MG PO (19:15)
[2017-10-05 20:19] LABS: ANION GAP 11 mmol/L (7-16); BUN 10 mg/dL (7-18); CALCIUM 9.4 mg/dL (8.5-10.1); CHLORIDE 102 mmol/L (98-107); CO2 23 mmol/L (21-32); CREATININE 0.9 mg/dL (0.6-1.0); GLUCOSE 172 mg/dL (74-106); SODIUM 136 mmol/L (136-145)
[2017-10-05 20:25] LABS: APTT 26.2 Seconds (24.5-32.8); PROTIME 10.4 Seconds (9.3-11.4)
[2017-10-05 20:28] LABS: ALBUMIN 2.9 g/dL (3.4-5.0); SGOT 27 U/L (15-37); SGPT 25 U/L (30-65); TOTAL BILIRUBIN 0.2 mg/dL (<0.1-1.0); TOTAL PROTEIN 7.4 g/dL (6.4-8.2); TROPONIN-I < 0.04 ng/mL (<0.06)
[2017-10-05 20:45] LABS: ABSOLUTE NEUTROPHILS 3.6 thou/uL (1.4-8.2); BASOPHILS 0.7 % (0.0-2.0); EOSINOPHILS 3.7 % (0.0-3.0); HEMATOCRIT 38.3 % (37.0-47.0); HEMOGLOBIN 12.7 gm/dL (12.0-15.0); LYMPHOCYTES 31.5 % (24.0-44.0); MCH 28.4 pg (26.0-34.0); MCHC 33.1 g/dL (28.0-37.0); MCV 85.8 fL (80.0-100.0); MONOCYTES 10.7 % (1.0-8.0); PLATELET COUNT 313 thou/uL (150-400); POLYS 53.4 % (36.0-66.0); RBC 4.46 mil/uL (4.20-5.00); RDW 13.2 % (10.5-14.5); WBC 6.8 thou/uL (4.0-11.0)
[2017-10-05 21:01] LABS: URINE BILIRUBIN NEGATIVE (Negative); URINE BLOOD NEGATIVE (Negative); URINE CLARITY SL CLOUDY; URINE COLOR YELLOW; URINE GLUCOSE-RANDOM* NEGATIVE (Negative); URINE KETONES NEGATIVE (Negative); URINE LEUKOCYTES-REFLEX NEGATIVE (Negative); URINE NITRITE-REFLEX NEGATIVE (Negative); URINE PROTEIN (DIPSTICK) TRACE (Negative); URINE UROBILINOGEN 0.2 E.U./dl (0.2-1.0)
[2017-10-05 21:44] VITALS: BP 109/77
[2017-10-05 22:37] VITALS: BP 140/85
[2017-10-05 23:54] VITALS: BP 153/91
[2017-10-06 04:54] LABS: ANION GAP 11 mmol/L (7-16); BUN 11 mg/dL (7-18); CALCIUM 8.6 mg/dL (8.5-10.1); CHLORIDE 103 mmol/L (98-107); CO2 25 mmol/L (21-32); GLUCOSE 294 mg/dL (74-106); POTASSIUM 3.9 mmol/L (3.5-5.1); SODIUM 139 mmol/L (136-145); TROPONIN-I < 0.04 ng/mL (<0.06)
[2017-10-06 05:34] VITALS: BP 133/77
[2017-10-06 10:23] VITALS: BP 131/73
[2017-10-06 16:26] VITALS: BP 134/81
[2017-10-06 19:36] VITALS: BP 134/77
[2017-10-07 03:34] LABS: CALCIUM 8.4 mg/dL (8.5-10.1); CREATININE 0.8 mg/dL (0.6-1.0)
[2017-10-07 04:01] LABS: ABSOLUTE NEUTROPHILS 4.5 thou/uL (1.4-8.2); BASOPHILS 0.8 % (0.0-2.0); EOSINOPHILS 3.9 % (0.0-3.0); HEMATOCRIT 36.5 % (37.0-47.0); HEMOGLOBIN 12.2 gm/dL (12.0-15.0); LYMPHOCYTES 27.1 % (24.0-44.0); MCH 28.7 pg (26.0-34.0); MCHC 33.4 g/dL (28.0-37.0); MCV 85.9 fL (80.0-100.0); MONOCYTES 8.7 % (1.0-8.0); PLATELET COUNT 326 thou/uL (150-400); POLYS 59.5 % (36.0-66.0); RBC 4.25 mil/uL (4.20-5.00); RDW 13.1 % (10.5-14.5); WBC 7.5 thou/uL (4.0-11.0)
[2017-10-07 05:00] VITALS: BP 151/100
[2017-10-07 08:24] VITALS: BP 124/68
[2017-10-07 13:08] LABS: GLYCOHEMOGLOBIN (HGB A1C) 9.2 % (4.8-5.6)
[2017-10-07 16:14] VITALS: BP 144/94
[2017-10-07 17:00] VITALS: BP 124/68
[2017-10-07 19:43] VITALS: BP 134/90
[2017-10-08 06:04] LABS: ABSOLUTE NEUTROPHILS 4.5 thou/uL (1.4-8.2); BASOPHILS 0.5 % (0.0-2.0); EOSINOPHILS 4.3 % (0.0-3.0); HEMATOCRIT 35.6 % (37.0-47.0); HEMOGLOBIN 11.6 gm/dL (12.0-15.0); LYMPHOCYTES 26.3 % (24.0-44.0); MCH 28.4 pg (26.0-34.0); MCHC 32.7 g/dL (28.0-37.0); MCV 86.9 fL (80.0-100.0); MONOCYTES 9.1 % (1.0-8.0); PLATELET COUNT 303 thou/uL (150-400); POLYS 59.8 % (36.0-66.0); RDW 13.5 % (10.5-14.5); WBC 7.5 thou/uL (4.0-11.0)
[2017-10-08 06:13] LABS: CALCIUM 8.9 mg/dL (8.5-10.1); CREATININE 0.7 mg/dL (0.6-1.0); POTASSIUM 3.9 mmol/L (3.5-5.1)
[2017-10-08 06:31] VITALS: BP 122/78
[2017-10-08 08:00] VITALS: BP 125/62
[2017-10-08 16:00] VITALS: BP 175/104
[2017-10-08 19:47] VITALS: BP 148/92
[2017-10-09 03:42] VITALS: BP 154/93
[2017-10-09 06:35] LABS: ABSOLUTE NEUTROPHILS 3.7 thou/uL (1.4-8.2); BASOPHILS 0.4 % (0.0-2.0); EOSINOPHILS 3.9 % (0.0-3.0); HEMATOCRIT 35.1 % (37.0-47.0); HEMOGLOBIN 11.6 gm/dL (12.0-15.0); LYMPHOCYTES 32.7 % (24.0-44.0); MCH 28.5 pg (26.0-34.0); MCHC 32.9 g/dL (28.0-37.0); MCV 86.6 fL (80.0-100.0); MONOCYTES 9.7 % (1.0-8.0); PLATELET COUNT 325 thou/uL (150-400); POLYS 53.3 % (36.0-66.0); RBC 4.05 mil/uL (4.20-5.00); RDW 13.5 % (10.5-14.5); WBC 6.9 thou/uL (4.0-11.0)
[2017-10-09 06:47] LABS: CALCIUM 8.9 mg/dL (8.5-10.1); CREATININE 0.7 mg/dL (0.6-1.0); POTASSIUM 3.7 mmol/L (3.5-5.1)
[2017-10-09 07:11] VITALS: BP 153/82
[2017-10-09 16:32] VITALS: BP 135/88
[2017-10-09 20:31] VITALS: BP 163/96
[2017-10-10 03:49] VITALS: BP 129/91
[2017-10-10 09:15] VITALS: BP 127/68
[2017-10-10 16:15] VITALS: BP 113/62
[2017-10-10 19:07] VITALS: BP 138/81
[2017-10-11 03:29] VITALS: BP 141/86
[2017-10-11 04:26] LABS: CREATININE 0.8 mg/dL (0.6-1.0)
[2017-10-11 04:38] LABS: ABSOLUTE NEUTROPHILS 4.5 thou/uL (1.4-8.2); BASOPHILS 0.5 % (0.0-2.0); EOSINOPHILS 3.9 % (0.0-3.0); HEMATOCRIT 34.3 % (37.0-47.0); HEMOGLOBIN 11.3 gm/dL (12.0-15.0); LYMPHOCYTES 24.8 % (24.0-44.0); MCH 28.4 pg (26.0-34.0); MCV 86.1 fL (80.0-100.0); MONOCYTES 8.6 % (1.0-8.0); PLATELET COUNT 314 thou/uL (150-400); POLYS 62.2 % (36.0-66.0); RBC 3.99 mil/uL (4.20-5.00); RDW 13.5 % (10.5-14.5); WBC 7.3 thou/uL (4.0-11.0)
[2017-10-11 10:24] VITALS: BP 128/90
[2017-10-11 16:27] VITALS: BP 122/84
[2017-10-11 20:00] VITALS: BP 157/91
[2017-10-12 05:49] VITALS: BP 157/99
[2017-10-12 06:02] LABS: BASOPHILS 0.2 % (0.0-2.0); EOSINOPHILS 3.6 % (0.0-3.0); HEMATOCRIT 35.5 % (37.0-47.0); HEMOGLOBIN 11.5 gm/dL (12.0-15.0); LYMPHOCYTES 22.8 % (24.0-44.0); MCH 28.1 pg (26.0-34.0); MCHC 32.5 g/dL (28.0-37.0); MCV 86.3 fL (80.0-100.0); PLATELET COUNT 334 thou/uL (150-400); POLYS 65.4 % (36.0-66.0); RBC 4.11 mil/uL (4.20-5.00); RDW 13.7 % (10.5-14.5); WBC 7.7 thou/uL (4.0-11.0)
[2017-10-12 06:12] LABS: CALCIUM 8.9 mg/dL (8.5-10.1); CREATININE 0.7 mg/dL (0.6-1.0); POTASSIUM 3.8 mmol/L (3.5-5.1)
[2017-10-12] MEDS ORDERED: NAFCILLIN 2 GM A2 G1 IV (07:49)
[2017-10-12] MEDS ORDERED: HYDROCODON-ACE1 EAC7 PO (07:50)
[2017-10-12 07:55] VITALS: BP 135/84
== END 2017-10-12 17:18 | DRG 289 ==
LOC: ER 18:14 → EROBS 21:32 → 4W 21:32
PROVIDERS: Emergency Medicine; Family Medicine; Nurse Practitioner Acute Care; Nurse Practitioner Family
PROC: B24BZZ4 Ultrasonography of Heart with Aorta, Transesophageal (ICD-10-PCS; principal; 2017-10-06)
PROC: B24BZZ4 Ultrasonography of Heart with Aorta, Transesophageal (ICD-10-PCS; 2017-10-09)
DX: I33.0 Acute and subacute infective endocarditis (principal); R78.81 Bacteremia; E87.2 Acidosis; D68.59 Other primary thrombophilia; Z68.44 Body mass index [BMI] 60.0-69.9, adult; M54.9 Dorsalgia, unspecified; I25.10 Atherosclerotic heart disease of native coronary artery without angina pectoris; B95.61 Methicillin susceptible Staphylococcus aureus infection as the cause of diseases classified elsewhere; R10.9 Unspecified abdominal pain; R11.2 Nausea with vomiting, unspecified; F32.9 Major depressive disorder, single episode, unspecified; E66.01 Morbid (severe) obesity due to excess calories; Z86.711 Personal history of pulmonary embolism; Z87.81 Personal history of (healed) traumatic fracture; Z87.442 Personal history of urinary calculi; Z86.718 Personal history of other venous thrombosis and embolism; Z86.73 Personal history of transient ischemic attack (TIA), and cerebral infarction without residual deficits; Z87.01 Personal history of pneumonia (recurrent); Z90.49 Acquired absence of other specified parts of digestive tract; Z79.899 Other long term (current) drug therapy; Z88.1 Allergy status to other antibiotic agents; Z88.5 Allergy status to narcotic agent; Z88.8 Allergy status to other drugs, medicaments and biological substances; Z91.048 Other nonmedicinal substance allergy status; Z82.49 Family history of ischemic heart disease and other diseases of the circulatory system; Z83.2 Family history of diseases of the blood and blood-forming organs and certain disorders involving the immune mechanism
CPT/HCPCS: 10045

== ENCOUNTER 2017-10-17 21:31 | Emergency (ER) | payer BC ==
[~2017-10-17] VITALS: Ht 165.1 cm; Wt 113.4 kg
--- NOTE | ~2017-10-17 | EKG ---
[address] [address] ELECTROCARDIOGRAM REPORT Name: MT STOCKTON [id number] Admission: 10/17/17 Attend Phys: Discharge: 10/17/17 Date of : 79 Report #: [id number] THIS REPORT FOR: //name// [facility] ED Test Date: 2017-10-17 Test Time: 21:41:56 Pat Name: MT STOCKTON Department: Room: Gender: F Nurse Orthopaedic: Josias RHODES : 1975 Requested By: Sylvia Ventura Order Number: [id number] MD: Pietro Patton Measurements Intervals [place] Rate: 79 P: -36 [place]: 164 QRS: -6 QRSD: 83 T: 17 QT: 426 QTc: 489 Interpretive Statements Sinus rhythm Low voltage, precordial leads Borderline T abnormalities, anterior leads Electronically Signed On 10-18-2017 19:52:06 CDT by Pietro Patton [email or web address] <ELECTRONICALLY SIGNED> By: Pietro Patton MD 10/18/171951 40 214 Pietro Patton MD /RONALDO
[~2017-10-17 21:31] MED LIST changes: +CUBICIN500 MG IVPB; +DOXEPIN 25 MG C25 MG PO; +NAFCILLIN 2 GM A2 G1 IV
== END 2017-10-17 23:40 | disposition home or self-care (01) ==
LOC: ER 21:31
DX: S09.90XA Unspecified injury of head, initial encounter (principal); Z88.1 Allergy status to other antibiotic agents; Z88.5 Allergy status to narcotic agent; Z88.8 Allergy status to other drugs, medicaments and biological substances; W19.XXXA Unspecified fall, initial encounter; Y93.89 Activity, other specified; Y92.89 Other specified places as the place of occurrence of the external cause; Y99.8 Other external cause status

== ENCOUNTER 2018-12-20 23:56 | Inpatient (IN) | payer OTHER ==
[~2018-12-20] VITALS: Ht 165.1 cm; Wt 88.9 kg
--- NOTE | ~2018-12-20 | HC ---
[facility] [place] [address] CONSULTATION Name: MT STOCKTON Room #: 364-P ADM IN M.R.#: [id number] Admission: 12/21/18 ������������������ Attend Phys: Alex Cohen DO Discharge: ������������������ Date of : 79 Report #: [id number] THIS REPORT FOR: //name// CC: HEIDY Cohen Physician staff HISTORY OF PRESENT ILLNESS: This patient is seen in consultation regarding a preexisting history of thrombophilia. She was admitted through the Emergency Room with complaints of abdominal pain around the known umbilical hernia and found to have incarceration/obstruction. The planned surgery is upcoming and the patient presents on Lovenox due to recent pulmonary embolism. She was recently discharged from [facility] with ongoing Lovenox therapy. She has a complicated history of antecedent hypercoagulable states, dating back at least 5 years. She had stated that she had a protein S and C deficiency, though when I obtained her records from [facility], those recent levels are normal. She had received Coumadin in the past with subsequent repeat thrombosis. She also has been treated with Eliquis and subsequently Lovenox. On neither of those last 2 agents were she monitored. ALLERGIES: CIPRO, DROPERIDOL, FENTANYL, LEVOFLOXACIN, MORPHINE, TAPE, KETOROLAC and COMPAZINE. MEDICATIONS: As listed in the MFR. SOCIAL HISTORY: She is a nondrinker, nonsmoker or illicit drug user. 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 She has had prior pancreatitis, cholecystectomy, and appendectomy. She is morbidly obese. She had septic emboli and stroke due to endocarditis. She had a mitral valve repair in 2015. REVIEW OF SYSTEMS: As in the history of present illness, for abdominal pain with subsequent nausea and vomiting. PHYSICAL EXAMINATION: GENERAL: Shows her to be alert and normotensive. HEENT: Her mouth is clear. NECK: Supple. CHEST: Clear. ABDOMEN: Shows morbid obesity. EXTREMITIES: Show edema. NEUROLOGIC: No focal localizing signs. PSYCHIATRIC: Not agitated or confused. LYMPHATICS: No suspicious adenopathy. SKIN: Shows normal turgor. [facility] [address] [place] [address] CONSULTATION Name: MT STOCKTON GUICHO Room #: 364-P ADM IN M.R.#: [id number] Admission: 12/21/18 ������������������ Attend Phys: Alex Cohen DO Discharge: ������������������ Date of : 79 Report #: [id number] HOSPITAL COURSE: Showed a CT scan of the abdomen showing a large umbilical hernia containing fat with a neck measuring 1.9 cm and sac 4.2 cm. There is apparent inflammation suggesting strangulation. ASSESSMENT: History of thrombophilia. PLAN: The patient currently is on Lovenox. She will require ongoing lifelong anticoagulation based on her strong past medical history, though it does not appear that she has protein S and C deficiency. She has already been seen by Dr. Fragoso through [facility] and has a scheduled followup appointment with him. Because of morbid obesity, she should not receive novel agents like Eliquis because it would be inadequate. If she is to use Lovenox, she will need to be monitored with Xa levels to make sure that she is getting adequate dosing. She is not wanting to have a filter placed and I would hope surgery would not have any complications and she could rapidly be started back on either Lovenox or unfractionated heparin postoperatively. Going forward in the future, she could receive Coumadin. When she was treated previously, it sounds that her INR was targeted only below 2s. We could endeavor to keep this in the 3 range and check quantitative D-dimers to ensure the adequacy of her anticoagulation. A lifelong heparin therapy would be associated with risk of osteoporosis along with the inconvenience and expense. Thanks for allowing me to see her in consultation and asking me to participate in her care. ��������������������������������������������� ���������������������������������������� By: ��������������������������������������������� 1522 1759 Mechelle Ortega MD /nt
[~2018-12-20 23:56] MED LIST changes: +BAYER CHEWABLE81 MG PO; +LOPRESSOR50 PO
[2018-12-20 23:58] VITALS: BP 149/88
[2018-12-21 02:48] LABS: ABSOLUTE NEUTROPHILS 6.7 thou/uL (1.4-8.2); BASOPHILS 0.2 % (0.0-2.0); EOSINOPHILS 1.7 % (0.0-3.0); HEMATOCRIT 40.3 % (37.0-47.0); HEMOGLOBIN 13.1 gm/dL (12.0-15.0); LYMPHOCYTES 27.3 % (24.0-44.0); MCH 28.3 pg (26.0-34.0); MCHC 32.6 g/dL (28.0-37.0); MCV 86.8 fL (80.0-100.0); MONOCYTES 6.9 % (1.0-8.0); PLATELET COUNT 342 thou/uL (150-400); POLYS 63.9 % (36.0-66.0); RBC 4.65 mil/uL (4.20-5.00); RDW 14.2 % (10.5-14.5); WBC 10.4 thou/uL (4.0-11.0)
[2018-12-21 02:52] LABS: CALCIUM 9.6 mg/dL (8.5-10.1); CREATININE 0.8 mg/dL (0.6-1.0)
[2018-12-21 02:58] LABS: ALBUMIN 3.2 g/dL (3.4-5.0); TOTAL BILIRUBIN 0.2 mg/dL (<0.1-1.0); TOTAL PROTEIN 7.9 g/dL (6.4-8.2)
[2018-12-21 03:05] LABS: POTASSIUM 4.2 mmol/L (3.5-5.1)
[2018-12-21] MEDS ORDERED: ENOXAPARIN100 MG/11 SUBQ (04:05)
[2018-12-21] MEDS ORDERED: OXYCODONE HCL10 MG PO (04:05)
[2018-12-21] MEDS ORDERED: GLUCOPHAGE XR500 MG PO (04:06)
[2018-12-21] MEDS ORDERED: AMITRIPTYLINE100 MG PO (04:07)
[2018-12-21 04:29] LABS: URINE BILIRUBIN NEGATIVE (Negative); URINE BLOOD 3+ (Negative); URINE CLARITY CLEAR; URINE COLOR YELLOW; URINE GLUCOSE-RANDOM* 1+ (Negative); URINE KETONES TRACE (Negative); URINE NITRITE-REFLEX NEGATIVE (Negative); URINE PROTEIN (DIPSTICK) TRACE (Negative); URINE SPECIFIC GRAVITY <= 1.005 (1.005-1.035); URINE UROBILINOGEN 0.2 E.U./dl (0.2-1.0)
[2018-12-21 04:39] LABS: URINE LEUKOCYTES-REFLEX 1+ (Negative)
[2018-12-21 04:46] LABS: AMP/METHAMP Negative (Negative); BARBITURATES Negative (Negative); BENZODIAZEPINES Negative (Negative); COCAINE Negative (Negative); METHADONE Negative (Negative); OPIATES POSITIVE (Negative); PCP Negative (Negative)
[2018-12-21 04:48] LABS: BACTERIA-REFLEX 1-9 Few /HPF (None Seen); CASTS None Seen /LPF (None Seen); CRYSTALS None Seen /LPF (None Seen); MUCUS 0-3 Light strn/LPF (None Seen); SQUAMOUS >10 Many /LPF (0-3); URINE RBC 3-10 Few /HPF (0-2); YEAST-REFLEX Present (None Seen)
--- NOTE | 2018-12-21 07:44 | EKG ---
[address] [place] [employer] [employer] [place] [address] ELECTROCARDIOGRAM REPORT Name: VISHAL STOCKTONIN GUICHO Room #: 170-5 ADM IN M.R.#: [id number] ������������������ Admission: 12/21/18 ������������������ Attend Phys: Alex Cohen DO Discharge: ������������������ Date of : 79 Report #: [id number] ����������������������������������������������������������������� [id number] THIS REPORT FOR: //name// [facility] ED Test Date: 2018-12-21 Test Time: 04:55:56 Pat Name: MT STOCKTON Department: Room: 170 Gender: F [employer] Manager: KIMBERLY : 1975 Requested By: Juancarlos Enrique Order Number: [id number] MD: Yaun Bernal Measurements Intervals [place] Rate: 139 P: -44 PA: 131 QRS: 7 QRSD: 112 T: 28 QT: 363 QTc: 552 Interpretive Statements Sinus tachycardia Inferior infarct, old Prolonged QT interval Compared to ECG 11/07/2017 00:23:28 Heart rate has increased Electronically Signed On 12-21-2018 7:44:35 CDT by Yuan Bernal [email or web address] ��������������������������������������������� <ELECTRONICALLY SIGNED> ���������������������������������������� By: Yuan Bernal MD, [facility] ��������������������������������������������� 12/21/18 0744 0455 0455 Yuan Bernal MD, [facility] /EPI
[2018-12-21 12:14] VITALS: BP 131/84
--- NOTE | 2018-12-21 17:47 | NUR ---
ATTEMPTED TO CALL REPORT X 2 SINCE 1714 NURSE NOT READY STATES WILL CALL BACK
[2018-12-21 18:04] VITALS: BP 156/69
--- NOTE | 2018-12-21 18:12 | NUR ---
PORT DSG CHANGED VIA STERILE TECHNIQUE DUE TO DSG LIFTING AT EDGES NO REDNESS OR DRAINAGE OR PAIN/TENDERNESS
[2018-12-21 18:32] VITALS: BP 164/94
--- NOTE | 2018-12-21 20:20 | NUR ---
report received from er/rn. pt received to room 364. pt ambulatory w/ a steady, balanced and coordinated gait. pt denies co pain at this time. pt request benadryl as she states the pain medication makes her sleepy. pt oriented to her room, reminded that she is npo dt or tomorrow. call from dr. pearson.
[2018-12-22 00:14] VITALS: BP 127/77
--- NOTE | 2018-12-22 05:02 | NUR ---
ASSUMED CARE FROM PREVIOUS SHIFT PT C/O ABD PAIN THROUGHOUT HOURLY ROUNDS REMAINS AWAKE ASKING FOR PAIN, NAUSEA AND BENADRLY FREQ. PT VOMITED APPROX 200ML OF YELLOW EMESIS. MATERIALS ASSOCIATE SHOWS ST , WILL CONINTUE WITH CURRENT PLAN OF CARE AND WILL REPORT CHANGES PT NPO FOR PENDING SURGERY.
[2018-12-22 05:21] VITALS: BP 147/97
[2018-12-22 05:24] LABS: ALBUMIN 3.3 g/dL (3.4-5.0); CALCIUM 9.1 mg/dL (8.5-10.1); CREATININE 0.6 mg/dL (0.6-1.0); MAGNESIUM 1.7 mg/dL (1.8-2.4); POTASSIUM 4.1 mmol/L (3.5-5.1); TOTAL BILIRUBIN 0.2 mg/dL (<0.1-1.0); TOTAL PROTEIN 7.5 g/dL (6.4-8.2)
[2018-12-22 07:40] LABS: ABSOLUTE NEUTROPHILS 4.1 thou/uL (1.4-8.2); BASOPHILS 0.7 % (0.0-2.0); EOSINOPHILS 1.1 % (0.0-3.0); LYMPHOCYTES 33.9 % (24.0-44.0); MCH 28.1 pg (26.0-34.0); MCHC 32.5 g/dL (28.0-37.0); MCV 86.6 fL (80.0-100.0); MONOCYTES 8.3 % (1.0-8.0); PLATELET COUNT 301 thou/uL (150-400); RBC 4.62 mil/uL (4.20-5.00); RDW 14.3 % (10.5-14.5); WBC 7.3 thou/uL (4.0-11.0)
[2018-12-22 08:00] VITALS: BP 147/83
[2018-12-22 11:25] VITALS: BP 154/96
[2018-12-22 16:00] VITALS: BP 127/79
--- NOTE | 2018-12-22 16:04 | NUR ---
Patient ALOx4. Patient's surgery cancelled for today. Lovenox reordered for tonight, and heart healthy diet continued. Patient was tachy in the 130's to 150's. Patient given metoprolol per hospitalist. Heart rate has been back down, currently in the 80's. Patient has had episodes of nausea and vomiting. Zofran administered along with dilaudid for abdominal pain with got switched from Q4H to Q3H per Dr. Valles. Not much progress toward plan of care at this time as patient still needs surgery. Will continue to monitor.
[2018-12-22 19:45] VITALS: BP 142/99
[2018-12-23] VITALS (7 sets, daily range): BP systolic 123–154; BP diastolic 48–96
--- NOTE | 2018-12-23 05:39 | NUR ---
PATIENT ALERT AND ORIENTED X4. UP AD JOLEEN. C/O PAIN Q3 OURS AND NAUSEA X2. MED GIVEN FOR BOTH. PATIENT HAS RED RAISED RASH ON THE BACK OF HER L HAND. STATES ITCHES BUT SHE DOEA NOT SCRATCH. MED APPLIED. HAS PORT ON R CHEST. ACCUCHECK WAS 235, RECIEVED 4 UNITS LISPRO INSULIN. SLEPT VERY LITTLE THIS SHIFT.
--- NOTE | 2018-12-23 09:56 | NUR ---
ASSESSMENT: CM REVIEWED CHART AND MET WITH PATIENT AT THE BEDSIDE. PT IS TO HAVE LAP REPAIR OF HERNIA. 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 PT REPORTS HAVING ABOUT 14 STEPS WHEN SHE ENTERS HER HOME THROUGH HER GARAGE TO HER MAIN LEVEL. PT REPORTS ABOUT 14 STEPS WITH HANDRAILS TO THE BEDROOM. PT REPORTS SHE AMBULATES USING A CANE. PT REPORTS HAVING A GRAB BAR AND SHOWER CHAIR. PT REPORTS SHE HAS HAD HH IN THE PAST BUT UNSURE THE AGENCY. PT REPORTS SHE HAS ALSO BEEN TO [facility] IN THE PAST. CM DISCUSSED ROLE. PT DOES NOT ANTICIPATE HAVING ANY NEEDS AT DISCHARGE THIS TIME. CM WILL CONTINUE TO FOLLOW TO ASSIST NEEDED.
--- NOTE | 2018-12-23 18:39 | NUR ---
No acute changes today. Patient has been wondering what the plan is for her hernia. Dr. Thompson spoke with this evening and said he will for sure not be doing the surgery due to the patient being too high risk for clots because of her history and not wanting an IVC filter. Patient has been asking for pain meds every time they are due stating that she is still in much pain. Dr. Thompson made aware of her pain. Dr. Valles addressed issue and scheduled different pain meds this afternoon. No vomiting but has had nausea. Not much progress toward plan of care as patient never had surgery, and is still complaning of pain as high as an 8 on the pain scale.
[2018-12-24 03:45] VITALS: BP 142/91
--- NOTE | 2018-12-24 06:35 | NUR ---
Medicated for generalized abdominal pain with some relief when dilaudid given but verbalized no relief with prn oxy IR. She slept some. Nausea med and benadryl given for itching per her request with some help. Will continue to monitor.
[2018-12-24 07:44] VITALS: BP 154/98
[2018-12-24 11:43] VITALS: BP 148/86
[2018-12-24 15:04] VITALS: BP 148/86
--- NOTE | 2018-12-24 16:38 | NUR ---
PT ALERT AND ORIENTED TIMES FOUR. VSS, 100%RA, SR ON TELE. PT C/O ABD PAIN PRN PAIN MEDICATIONS GIVEN WITH SOME RELEIF. PT TOLERATES MEDS AND MEALS. PT UP AB JOLEEN WITH STEADY GAIT. PLAN FOR DISCHARGE TODAY. PT PROGRESSING TOWRDAS POC GOALS.
== END 2018-12-24 16:30 | disposition home or self-care (01) | DRG 394 ==
LOC: ER 23:56 → 3W 12-21 05:34 → EROBS 12-21 05:34 → 3W 12-21 18:12
PROVIDERS: Emergency Medicine; Nurse Practitioner Family; ADMIT Internal Medicine Geriatric Medicine
DX: K43.6 Other and unspecified ventral hernia with obstruction, without gangrene (principal); K92.2 Gastrointestinal hemorrhage, unspecified; D68.59 Other primary thrombophilia; K42.0 Umbilical hernia with obstruction, without gangrene; Z53.9 Procedure and treatment not carried out, unspecified reason; E66.9 Obesity, unspecified; R21 Rash and other nonspecific skin eruption; E11.9 Type 2 diabetes mellitus without complications; Z86.711 Personal history of pulmonary embolism; Z86.718 Personal history of other venous thrombosis and embolism; Z90.49 Acquired absence of other specified parts of digestive tract; Z87.442 Personal history of urinary calculi; Z68.32 Body mass index [BMI] 32.0-32.9, adult; Z86.73 Personal history of transient ischemic attack (TIA), and cerebral infarction without residual deficits; Z87.01 Personal history of pneumonia (recurrent); Z86.14 Personal history of Methicillin resistant Staphylococcus aureus infection; Z79.82 Long term (current) use of aspirin; Z79.899 Other long term (current) drug therapy; Z88.1 Allergy status to other antibiotic agents; Z88.8 Allergy status to other drugs, medicaments and biological substances; Z88.6 Allergy status to analgesic agent; Z91.048 Other nonmedicinal substance allergy status; Z79.01 Long term (current) use of anticoagulants; R00.0 Tachycardia, unspecified
CPT/HCPCS: 10879

== ENCOUNTER 2019-03-23 13:11 | Emergency (ER) | payer OTHER ==
[~2019-03-23] VITALS: Ht 165.1 cm; Wt 136.1 kg
[~2019-03-23 13:11] MED LIST changes: +AMITRIPTYLINE100 MG PO; +GLUCOPHAGE XR500 MG PO; +OXYCODONE HCL10 MG PO
[2019-03-23] MEDS ORDERED: NOVOLOG100 UNIT/1 SUBQ (13:33)
[2019-03-23] MEDS ORDERED: LANTUS100 UNIT/M SUBQ (13:34)
[2019-03-23 13:35] LABS: URINE BILIRUBIN NEGATIVE (Negative); URINE BLOOD 3+ (Negative); URINE CLARITY CLOUDY; URINE COLOR YELLOW; URINE GLUCOSE-RANDOM* NEGATIVE (Negative); URINE KETONES NEGATIVE (Negative); URINE LEUKOCYTES 1+ (Negative); URINE NITRITE NEGATIVE (Negative); URINE PROTEIN (DIPSTICK) TRACE (Negative); URINE UROBILINOGEN 0.2 E.U./dl (0.2-1.0)
[2019-03-23] MEDS ORDERED: COUMADIN 4 MG TA4 M1 PO (13:35)
[2019-03-23 13:47] LABS: SQUAMOUS >10 Many /LPF (0-3); YEAST Present (None Seen)
[2019-03-23 13:48] LABS: CASTS None Seen /LPF (None Seen); CRYSTALS None Seen /LPF (None Seen); URINE RBC 3-10 Few /HPF (0-2); URINE WBC 6-15 Few /HPF (0-5)
[2019-03-23 14:07] LABS: ABSOLUTE NEUTROPHILS 4.4 thou/uL (1.4-8.2); BASOPHILS 0.6 % (0.0-2.0); EOSINOPHILS 3.2 % (0.0-3.0); HEMATOCRIT 34.6 % (37.0-47.0); HEMOGLOBIN 11.2 gm/dL (12.0-15.0); LYMPHOCYTES 22.5 % (24.0-44.0); MCH 27.2 pg (26.0-34.0); MCHC 32.3 g/dL (28.0-37.0); MCV 84.1 fL (80.0-100.0); MONOCYTES 7.3 % (1.0-8.0); PLATELET COUNT 396 thou/uL (150-400); POLYS 66.4 % (36.0-66.0); RBC 4.11 mil/uL (4.20-5.00); RDW 14.9 % (10.5-14.5); WBC 6.6 thou/uL (4.0-11.0)
[2019-03-23 14:15] LABS: CALCIUM 8.7 mg/dL (8.5-10.1); CREATININE 0.9 mg/dL (0.6-1.0); POTASSIUM 4.1 mmol/L (3.5-5.1)
[2019-03-23 14:21] LABS: ALBUMIN 3.1 g/dL (3.4-5.0); TOTAL BILIRUBIN 0.1 mg/dL (<0.1-1.0); TOTAL PROTEIN 7.3 g/dL (6.4-8.2)
[2019-03-23 15:05] LABS: PROTIME 68.1 Seconds (9.3-11.4)
[2019-03-23 15:08] LABS: INR 6.6
[2019-03-23 16:23] VITALS: BP 141/81
== END 2019-03-23 16:24 | disposition home or self-care (01) ==
LOC: ER 13:11
PROVIDERS: Emergency Medicine Emergency Medical Services; Nurse Practitioner
DX: K42.9 Umbilical hernia without obstruction or gangrene (principal); E66.9 Obesity, unspecified; Z68.42 Body mass index [BMI] 45.0-49.9, adult; Z90.49 Acquired absence of other specified parts of digestive tract; Z87.892 Personal history of anaphylaxis; Z86.73 Personal history of transient ischemic attack (TIA), and cerebral infarction without residual deficits; Z86.711 Personal history of pulmonary embolism; Z86.718 Personal history of other venous thrombosis and embolism; Z86.14 Personal history of Methicillin resistant Staphylococcus aureus infection; Z79.01 Long term (current) use of anticoagulants; Z88.5 Allergy status to narcotic agent; Z88.6 Allergy status to analgesic agent; Z91.048 Other nonmedicinal substance allergy status; Z88.8 Allergy status to other drugs, medicaments and biological substances

== ENCOUNTER 2019-03-30 23:57 | Emergency (ER) | payer OTHER ==
[~2019-03-30] VITALS: Ht 165.1 cm; Wt 136.1 kg
[~2019-03-30 23:57] MED LIST changes: +COUMADIN 4 MG TA4 M1 PO; +LANTUS100 UNIT/M SUBQ; +NOVOLOG100 UNIT/1 SUBQ
[2019-03-31 01:02] LABS: ABSOLUTE NEUTROPHILS 4.9 thou/uL (1.4-8.2); BASOPHILS 0.3 % (0.0-2.0); EOSINOPHILS 1.6 % (0.0-3.0); HEMATOCRIT 35.8 % (37.0-47.0); HEMOGLOBIN 11.6 gm/dL (12.0-15.0); LYMPHOCYTES 29.1 % (24.0-44.0); MCH 27.2 pg (26.0-34.0); MCHC 32.5 g/dL (28.0-37.0); MCV 83.9 fL (80.0-100.0); MONOCYTES 8.5 % (1.0-8.0); PLATELET COUNT 342 thou/uL (150-400); POLYS 60.5 % (36.0-66.0); RBC 4.27 mil/uL (4.20-5.00); RDW 15.1 % (10.5-14.5); WBC 8.1 thou/uL (4.0-11.0)
[2019-03-31 01:07] LABS: CALCIUM 8.8 mg/dL (8.5-10.1); CREATININE 1.2 mg/dL (0.6-1.0); POTASSIUM 3.7 mmol/L (3.5-5.1)
[2019-03-31 01:14] LABS: TOTAL BILIRUBIN 0.2 mg/dL (<0.1-1.0); TOTAL PROTEIN 7.3 g/dL (6.4-8.2)
[2019-03-31] MEDS ORDERED: COUMADIN 3 MG TA3 M1 PO (01:35)
[2019-03-31] MEDS ORDERED: PERCOCET 7.5-31 EACH PO (02:40)
[2019-03-31] MEDS ORDERED: LEVSIN0.125 MG PO (02:44)
[2019-03-31 03:34] VITALS: BP 96/60
== END 2019-03-31 03:35 | disposition home or self-care (01) ==
LOC: ER 23:57
PROVIDERS: Emergency Medicine
DX: K42.9 Umbilical hernia without obstruction or gangrene (principal); I26.99 Other pulmonary embolism without acute cor pulmonale; R19.7 Diarrhea, unspecified; G89.29 Other chronic pain; M54.2 Cervicalgia; M54.9 Dorsalgia, unspecified; E66.9 Obesity, unspecified; Z90.49 Acquired absence of other specified parts of digestive tract; Z87.442 Personal history of urinary calculi; Z86.73 Personal history of transient ischemic attack (TIA), and cerebral infarction without residual deficits; Z86.14 Personal history of Methicillin resistant Staphylococcus aureus infection; Z86.718 Personal history of other venous thrombosis and embolism; Z68.42 Body mass index [BMI] 45.0-49.9, adult; Z90.89 Acquired absence of other organs; Z88.1 Allergy status to other antibiotic agents; Z88.5 Allergy status to narcotic agent; Z88.8 Allergy status to other drugs, medicaments and biological substances; Z91.048 Other nonmedicinal substance allergy status; Z88.6 Allergy status to analgesic agent

== ENCOUNTER 2019-04-10 06:54 | Emergency (ER) | payer OTHER ==
[~2019-04-10] VITALS: Ht 165.1 cm; Wt 136.1 kg
[~2019-04-10 06:54] MED LIST changes: +LEVSIN0.125 MG PO
[2019-04-10] MEDS ORDERED: COUMADIN 5 MG TA5 M1 PO (07:14)
[2019-04-10 07:36] LABS: URINE BILIRUBIN NEGATIVE (Negative); URINE BLOOD NEGATIVE (Negative); URINE CLARITY SL CLOUDY; URINE COLOR YELLOW; URINE GLUCOSE-RANDOM* TRACE (Negative); URINE KETONES TRACE (Negative); URINE LEUKOCYTES-REFLEX NEGATIVE (Negative); URINE NITRITE-REFLEX NEGATIVE (Negative); URINE PROTEIN (DIPSTICK) NEGATIVE (Negative); URINE SPECIFIC GRAVITY 1.025 (1.005-1.035); URINE UROBILINOGEN 0.2 E.U./dl (0.2-1.0)
[2019-04-10 10:35] VITALS: BP 107/59
== END 2019-04-10 10:36 | disposition home or self-care (01) ==
LOC: ER 06:54
PROVIDERS: Emergency Medicine
DX: K42.9 Umbilical hernia without obstruction or gangrene (principal); R11.2 Nausea with vomiting, unspecified; E66.9 Obesity, unspecified; Z68.42 Body mass index [BMI] 45.0-49.9, adult; Z90.49 Acquired absence of other specified parts of digestive tract; Z86.711 Personal history of pulmonary embolism; Z87.442 Personal history of urinary calculi; Z86.73 Personal history of transient ischemic attack (TIA), and cerebral infarction without residual deficits; Z88.1 Allergy status to other antibiotic agents; Z88.6 Allergy status to analgesic agent; Z88.8 Allergy status to other drugs, medicaments and biological substances; Z91.048 Other nonmedicinal substance allergy status

== ENCOUNTER 2019-10-18 13:52 | Emergency (ER) | payer OTHER ==
[~2019-10-18] VITALS: Ht 165.1 cm; Wt 122.5 kg
[2019-10-18 14:28] LABS: URINE BILIRUBIN NEGATIVE (Negative); URINE BLOOD 2+ (Negative); URINE CLARITY CLEAR; URINE COLOR YELLOW; URINE GLUCOSE-RANDOM* NEGATIVE (Negative); URINE KETONES NEGATIVE (Negative); URINE LEUKOCYTES-REFLEX TRACE (Negative); URINE NITRITE-REFLEX NEGATIVE (Negative); URINE PROTEIN (DIPSTICK) NEGATIVE (Negative); URINE SPECIFIC GRAVITY 1.025 (1.005-1.035); URINE UROBILINOGEN 0.2 E.U./dl (0.2-1.0)
[2019-10-18 14:38] LABS: CASTS None Seen /LPF (None Seen); MUCUS >6 Heavy strn/LPF (None Seen); SQUAMOUS >10 Many /LPF (0-3)
[2019-10-18 14:39] LABS: BACTERIA-REFLEX >30 Many /HPF (None Seen); CRYSTALS None Seen /LPF (None Seen); URINE RBC 3-10 Few /HPF (0-2); URINE WBC-REFLEX 0-5 Rare /HPF (0-5)
[2019-10-18 15:37] LABS: ABSOLUTE NEUTROPHILS 3.3 thou/uL (1.4-8.2); BASOPHILS 0.7 % (0.0-2.0); HEMOGLOBIN 13.1 gm/dL (12.0-15.0); LYMPHOCYTES 28.7 % (24.0-44.0); MCH 28.8 pg (26.0-34.0); MCHC 32.8 g/dL (28.0-37.0); MCV 87.6 fL (80.0-100.0); MONOCYTES 7.7 % (1.0-8.0); PLATELET COUNT 269 thou/uL (150-400); POLYS 60.9 % (36.0-66.0); RBC 4.56 mil/uL (4.20-5.00); WBC 5.4 thou/uL (4.0-11.0)
[2019-10-18 15:43] LABS: CALCIUM 8.8 mg/dL (8.5-10.1); CREATININE 0.7 mg/dL (0.6-1.0)
[2019-10-18 15:49] LABS: ALBUMIN 3.1 g/dL (3.4-5.0); TOTAL BILIRUBIN 0.2 mg/dL (<0.1-1.0); TOTAL PROTEIN 7.1 g/dL (6.4-8.2)
[2019-10-18 16:00] LABS: PROTIME 30.8 Seconds (9.3-11.4)
[2019-10-18] MEDS ORDERED: NORCO 10-325 T1 EACH PO (18:41)
[2019-10-18 19:26] VITALS: BP 126/71
== END 2019-10-18 20:03 | disposition home or self-care (01) ==
LOC: ER 13:52
PROVIDERS: Physician Assistant
DX: K46.9 Unspecified abdominal hernia without obstruction or gangrene (principal); Z79.01 Long term (current) use of anticoagulants; Z79.4 Long term (current) use of insulin; Z88.1 Allergy status to other antibiotic agents; Z88.8 Allergy status to other drugs, medicaments and biological substances; Z86.718 Personal history of other venous thrombosis and embolism; Z86.73 Personal history of transient ischemic attack (TIA), and cerebral infarction without residual deficits

== ENCOUNTER 2020-07-22 20:20 | Emergency (ER) | payer OTHER ==
[~2020-07-22] VITALS: Ht 165.1 cm; Wt 127.0 kg
[~2020-07-22 20:20] MED LIST changes: +NORCO 10-325 T1 EACH PO
[2020-07-22] MEDS ORDERED: JANTOVEN6 MG PO (20:32)
[2020-07-22 20:40] LABS: URINE BILIRUBIN NEGATIVE (Negative); URINE BLOOD 3+ (Negative); URINE CLARITY SL CLOUDY; URINE COLOR YELLOW; URINE GLUCOSE-RANDOM* NEGATIVE (Negative); URINE KETONES NEGATIVE (Negative); URINE LEUKOCYTES-REFLEX 2+ (Negative); URINE NITRITE-REFLEX NEGATIVE (Negative); URINE PROTEIN (DIPSTICK) TRACE (Negative); URINE UROBILINOGEN 0.2 E.U./dl (0.2-1.0)
[2020-07-22 20:46] LABS: SQUAMOUS >10 Many /LPF (0-3)
[2020-07-22 20:50] LABS: BACTERIA-REFLEX 1-9 Few /HPF (None Seen); CASTS None Seen /LPF (None Seen); CRYSTALS None Seen /LPF (None Seen); URINE RBC >20 Many /HPF (0-2); URINE WBC-REFLEX 6-15 Few /HPF (0-5)
[2020-07-22 21:54] LABS: ABSOLUTE NEUTROPHILS 8.6 thou/uL (1.4-8.2); BASOPHILS 0.5 % (0.0-2.0); EOSINOPHILS 0.7 % (0.0-3.0); HEMATOCRIT 36.1 % (37.0-47.0); HEMOGLOBIN 11.8 gm/dL (12.0-15.0); LYMPHOCYTES 13.4 % (24.0-44.0); MCH 28.9 pg (26.0-34.0); MCHC 32.7 g/dL (28.0-37.0); MCV 88.4 fL (80.0-100.0); MONOCYTES 5.1 % (1.0-8.0); PLATELET COUNT 323 thou/uL (150-400); POLYS 80.3 % (36.0-66.0); RBC 4.08 mil/uL (4.20-5.00); RDW 13.9 % (10.5-14.5); WBC 10.8 thou/uL (4.0-11.0)
[2020-07-22 22:05] LABS: INR 2.2; PROTIME 22.1 Seconds (9.3-11.4)
[2020-07-22] MEDS ORDERED: KEFLEX500 M1 PO (22:37)
[2020-07-22 23:39] VITALS: BP 142/70
== END 2020-07-22 23:30 | disposition home or self-care (01) ==
LOC: ER 20:20
PROVIDERS: Nurse Practitioner
DX: N39.0 Urinary tract infection, site not specified (principal); N92.0 Excessive and frequent menstruation with regular cycle; R10.2 Pelvic and perineal pain; E66.9 Obesity, unspecified; Z90.49 Acquired absence of other specified parts of digestive tract; Z86.718 Personal history of other venous thrombosis and embolism; Z86.711 Personal history of pulmonary embolism; Z87.442 Personal history of urinary calculi; Z68.42 Body mass index [BMI] 45.0-49.9, adult; Z86.73 Personal history of transient ischemic attack (TIA), and cerebral infarction without residual deficits; Z79.82 Long term (current) use of aspirin; Z79.4 Long term (current) use of insulin; Z79.01 Long term (current) use of anticoagulants; Z79.899 Other long term (current) drug therapy; Z88.1 Allergy status to other antibiotic agents; Z88.8 Allergy status to other drugs, medicaments and biological substances; Z88.5 Allergy status to narcotic agent; Z91.048 Other nonmedicinal substance allergy status; Z88.6 Allergy status to analgesic agent

== ENCOUNTER 2020-10-15 13:57 | Emergency (ER) | payer OTHER ==
[~2020-10-15] VITALS: Ht 165.1 cm; Wt 136.1 kg
[~2020-10-15 13:57] MED LIST changes: +JANTOVEN6 MG PO; +KEFLEX500 M1 PO
[2020-10-15 14:59] LABS: URINE BILIRUBIN NEGATIVE (Negative); URINE BLOOD NEGATIVE (Negative); URINE COLOR YELLOW; URINE GLUCOSE-RANDOM* 1+ (Negative); URINE KETONES 1+ (Negative); URINE LEUKOCYTES-REFLEX TRACE (Negative); URINE NITRITE-REFLEX NEGATIVE (Negative); URINE PROTEIN (DIPSTICK) 1+ (Negative); URINE SPECIFIC GRAVITY >= 1.030 (1.005-1.035); URINE UROBILINOGEN 0.2 E.U./dl (0.2-1.0)
[2020-10-15 15:00] LABS: URINE CLARITY CLOUDY
[2020-10-15 15:19] LABS: AMORPHOUS URATES Many /LPF (None Seen); BACTERIA-REFLEX 1-9 Few /HPF (None Seen); CASTS None Seen /LPF (None Seen); SQUAMOUS 4-10 Moderate /LPF (0-3); URINE RBC 0-2 Rare /HPF (0-2); URINE WBC-REFLEX 0-5 Rare /HPF (0-5)
[2020-10-15 15:22] LABS: ABSOLUTE NEUTROPHILS 7.3 thou/uL (1.4-8.2); BASOPHILS 0.3 % (0.0-2.0); EOSINOPHILS 0.5 % (0.0-3.0); HEMATOCRIT 38.8 % (37.0-47.0); HEMOGLOBIN 12.9 gm/dL (12.0-15.0); LYMPHOCYTES 15.6 % (24.0-44.0); MCH 28.8 pg (26.0-34.0); MCHC 33.1 g/dL (28.0-37.0); MCV 86.9 fL (80.0-100.0); MONOCYTES 6.2 % (1.0-8.0); PLATELET COUNT 317 thou/uL (150-400); POLYS 77.4 % (36.0-66.0); RBC 4.47 mil/uL (4.20-5.00); RDW 14.4 % (10.5-14.5); WBC 9.4 thou/uL (4.0-11.0)
[2020-10-15 15:32] LABS: ANION GAP 12 mmol/L (7-16); BUN 22 mg/dL (7-18); CALCIUM 9.1 mg/dL (8.5-10.1); CHLORIDE 101 mmol/L (98-107); CO2 24 mmol/L (21-32); GLUCOSE 279 mg/dL (74-106); POTASSIUM 4.9 mmol/L (3.5-5.1); SODIUM 137 mmol/L (136-145)
[2020-10-15 15:38] LABS: ALBUMIN 3.3 g/dL (3.4-5.0); DIRECT BILIRUBIN < 0.1 mg/dL (<0.1-0.2); LIPASE 108 U/L (73-393); SGOT 23 U/L (15-37); SGPT 26 U/L (14-59); TOTAL BILIRUBIN 0.3 mg/dL (0.2-1.0); TOTAL PROTEIN 7.8 g/dL (6.4-8.2)
[2020-10-15 21:17] VITALS: BP 156/77
== END 2020-10-15 21:25 | disposition home or self-care (01) ==
LOC: ER 13:57
PROVIDERS: Emergency Medicine
DX: R10.30 Lower abdominal pain, unspecified (principal); Z90.49 Acquired absence of other specified parts of digestive tract; Z86.73 Personal history of transient ischemic attack (TIA), and cerebral infarction without residual deficits; Z79.82 Long term (current) use of aspirin; Z79.01 Long term (current) use of anticoagulants; Z79.899 Other long term (current) drug therapy; Z88.1 Allergy status to other antibiotic agents; Z88.8 Allergy status to other drugs, medicaments and biological substances; Z91.048 Other nonmedicinal substance allergy status